=== PATIENT | female | born 1970 | race Caucasian/White ===

== ENCOUNTER → 2021-01-03 10:21 | Outpatient (CLI) | payer BC, SELFPAY ==
--- NOTE | 2021-01-03 10:28 | XR_ITS ---
PROCEDURE: XR LUMBAR SPINE MIN 4V CLINICAL INDICATION: ACUTE MIDLINE LOW BACK PAIN, UNSPECIFIED IF SCIATICA PRESENT COMPARISON: No exams were available for comparison FINDINGS: There is normal curvature and alignment. All lumbar vertebrae appear intact. Disc spaces are well maintained throughout. There is no pars defect. There are mild hypertrophic facet changes at the L 4 5 and L5-S1 levels. The SI joints appear normal. IMPRESSION: Mild hypertrophic facet changes lower lumbar spine otherwise normal study Dictated by: Dr. Hesham Godwin MD 01/03/2021 11:48 Dr. Hesham Godwin MD in [place] 01/03/2021 11:48
== END ==
PROVIDERS: PCP Family Medicine; Visit Provider Family Medicine
DX: M54.5 Low back pain (principal)
CPT/HCPCS: 72110

== ENCOUNTER → 2021-01-10 10:12 | Outpatient (CLI) | payer BC, SELFPAY ==
--- NOTE | 2021-01-10 10:16 | MM_ITS ---
PROCEDURE INFORMATION: Exam: Screening 3D Mammography Exam date and time: 01/10/2021 10:16 AM Age: 50 years old Clinical indication: Encounter for screening mammogram for malignant neoplasm of breast TECHNIQUE: Imaging protocol: Screening tomosynthesis and 2D mammography including computer-aided detection (CAD) when performed. COMPARISON: MG DMSB DIG MAMM-SCREEN SOLA W/CAD 01/01/2017 9:54 AM FINDINGS: MAMMOGRAPHY: Breast composition: The breast tissue is composed of scattered areas of fibroglandular density. Mass: None. Architectural distortion: None. Calcifications: No suspicious calcifications. Asymmetric density: None. Skin thickening: None. Axillary adenopathy: None. IMPRESSION: No mammographic evidence of malignancy. Annual screening is recommended unless otherwise clinically indicated. ASSESSMENT: BI-RADS Category 1: Negative
== END ==
PROVIDERS: PCP Family Medicine; Visit Provider Family Medicine
DX: Z12.31 Encounter for screening mammogram for malignant neoplasm of breast (principal)
CPT/HCPCS: 77063; 77067

== ENCOUNTER → 2021-03-07 14:15 | Outpatient (CLI) | payer BC, SELFPAY ==
[2021-03-07 15:29] LABS: HCG Qualitative, Serum Negative (Negative)
== END ==
PROVIDERS: Visit Provider Internal Medicine Gastroenterology
DX: Z01.812 Encounter for preprocedural laboratory examination (principal); Z11.52 Encounter for screening for COVID-19; U07.1 COVID-19; Z12.11 Encounter for screening for malignant neoplasm of colon
CPT/HCPCS: 36415; 84703; U0003

== ENCOUNTER 2021-09-05 17:51 | Emergency (ER) | payer BC, SELFPAY ==
[2021-09-05 18:52] VITALS: BP 150/84; PULSE 91; RESP 16; TEMP 36.8; O2SAT 100; BMI 39.8
--- NOTE | 2021-09-05 19:02 | HMH.EDUTC ---
[facility] [place] Clinical Impression: Allergic reaction Qualifiers: Encounter type: initial encounter Qualified Code(s): T78.40XA - Allergy, unspecified, initial encounter Disposition: Home, Self-Care Condition on Discharge: Good Instructions: DI for General Allergic Reactions Additional Instructions: Try to avoid contact with the offending substance if you can identify it. Don't start the oral steroids until tomorrow. Follow up with your regular doctor. GO TO THE ER FOR ANY WORSENING SYMPTOMS OR CONCERNS Watch your blood sugars and follow your diabetic diet closely while you are on the steroids. Prescriptions: methylPREDNISolone [Medrol] 4 mg PO DIRECTED 6 Days #21 packet Transmission Status: Received by [employer] Referrals: Josh Mcbride MD [Primary Care Provider] - Time of Disposition: 19:31 Medical Decision Making - Medical Records Medical records reviewed: No: I reviewed the patient's medical records. - Mathew Inquiry Pt receiving controlled substance: No Vital Signs: 09/05/21 18:52 09/05/21 19:51 Temperature 98.2 F 98.2 F Temperature Source Oral Pulse Rate 91 H Pulse Rate [Left] 91 H Respiratory Rate 16 16 Blood Pressure 150/84 H Blood Pressure [Right Arm] 150/84 H Blood Pressure Mean [Right Arm] 106 02 Sat by Pulse Oximetry 100 Orders (Tests/Meds): ED MEDICATIONS Discontinued Medications Generic Name Dose Route Start Last Admin Trade Name Georgeq PRN Reason Stop Dose Admin Methylprednisolone Sodium Succinate 125 mg 09/05/21 19:14 09/05/21 19:21 Methylprednisolone Sod Succ 125mg Vial IM 09/05/21 19:15 125 mg ONCE ONE Administration [facility] [place] [facility] [place] - General Stated complaint: both eyelids are itchy/burning Time Seen by Provider: 09/05/21 19:02 Mode of Arrival: Ambulatory Source of Information: Patient Limitations: No Limitations Description of Symptoms (Recalled from Triage Doc. by RN): pt c/o a rash on her eyelids/neck that itches, kingsley and is swollen. pt wants checked for shingles. ongoing x1wk. HEENT Symptoms (Recalled from RN notes): No Resp Symptoms (Recalled from RN notes): No Skin Symptoms (Recalled from RN notes): Yes MS Symptoms (Recalled from RN notes): No Functional Status (Recalled from RN notes): wnl - History of Present Illness Provider Complaint: She states that for the past 3 days she has had swelling and itching around her eyes. Her eye lids have been swollen also. She is also having a similar in appearance and feeling rash on the left side and front of her neck. She denies any fever/chills/body aches or any other symptoms. She denies being exposed to any known allergens. She denies any mouth or throat swelling, chest pain, wheezing or shortness of breath. - Related Data Home Medications Medication Instructions Recorded Confirmed Dapagliflozin/Metformin HCl 1 each PO DAILY 03/05/21 03/05/21 [Xigduo Xr 5 mg-1,000 mg Tablet] Levothyroxine Sodium 50 mcg PO DAILY 03/05/21 03/05/21 [Levothyroxine] glipiZIDE [Glipizide] 10 mg PO DAILY 03/05/21 03/05/21 lisinopriL [Lisinopril] 10 mg PO DAILY 03/05/21 03/05/21 Previous Rx's Medication Instructions Recorded methylPREDNISolone [Medrol] 4 mg PO DIRECTED 6 Days #21 09/05/21 packet Allergies Allergy/AdvReac Type Severity Reaction Status Date / Time No Known Allergies Allergy Unverified 03/07/21 15:03 - Worker's Comp Is this a Worker's Comp case?: No [facility] History - Hepatitis A Screen Drug use history?: No High risk sexual behaviors?: No History of sexually transmitted infection?: No Currently employed?: No Childcare worker?: No Do you have indoor plumbing?: Yes Do you have electricity?: Yes Attestation statement:: This patient has been screened for Hepatitis A risk factors. I have reviewed the patient's past medical history: Yes Medical History: Reports:: Diabetes Mellitus Type 2 Denies:: Cancer, Diabetes Mellitus Type 1
[2021-09-05 19:51] VITALS: BP 150/84; PULSE 91; RESP 16; TEMP 36.8
== END 2021-09-05 19:52 | disposition home or self-care (01) ==
PROVIDERS: Emergency Provider Nurse Practitioner Family; PCP Family Medicine
DX: T78.40XA Allergy, unspecified, initial encounter (principal)
CPT/HCPCS: 96372; 99202; G0463

== ENCOUNTER → 2022-06-05 10:47 | Outpatient (CLI) | payer BC, SELFPAY ==
--- NOTE | 2022-06-05 10:50 | MM_ITS ---
PROCEDURE INFORMATION: Exam: MG Bilateral Screening 3D Mammography Exam date and time: 06/05/2022 10:50 AM Age: 51 years old Clinical indication: Screening examination TECHNIQUE: Imaging protocol: Bilateral Screening tomosynthesis and 2D mammography including computer-aided detection (CAD) when performed. COMPARISON: 1. MG MM DIG SCREENING MAMM BI W/CAD 01/10/2021 10:16 AM 2. MG DMSB DIG MAMM-SCREEN SOLA W/CAD 01/01/2017 9:54 AM FINDINGS: MAMMOGRAPHY: Breast composition: There are scattered areas of fibroglandular density. Mass: None. Architectural distortion: None. Calcifications: No suspicious calcifications. Asymmetric density: None. Skin thickening: None. Axillary adenopathy: None. IMPRESSION: No mammographic evidence of malignancy. Annual screening is recommended unless otherwise clinically indicated. ASSESSMENT: BI-RADS Category 1: Negative
== END ==
PROVIDERS: PCP Family Medicine; Visit Provider Family Medicine
DX: Z12.31 Encounter for screening mammogram for malignant neoplasm of breast (principal)
CPT/HCPCS: 77063; 77067

== ENCOUNTER 2022-06-30 06:56 | Day surgery (SDC) | payer BC, SELFPAY ==
[2022-06-25 13:38] VITALS: BMI 39.4
[2022-06-30] VITALS (7 sets, daily range): BP systolic 111–165; BP diastolic 67–86; PULSE 95–116; RESP 14–18; TEMP 36.2–36.7; O2SAT 92–97
[2022-06-30 07:21] LABS: POC Glucose,Bedside 112 (70-110)
--- NOTE | 2022-06-30 07:27 | P.PN_ITS ---
PFSH PFSH Medical History Allergies Arthritis Diabetes mellitus, type 2 Edema Endometriosis History of back pain History of COVID-19 Hypertension Hypothyroid Surgical History History of surgery Family History Mother Colon cancer Grandfather Colon cancer Social History Smoking Status: Never smoker alcohol intake: never substance use type: denies use current occupational status: employed Travel in the last 8 weeks: None household members: spouse housing: house current occupational exposures/hazards: No caffeine: Yes [facility] Anesthesia Checklist Patient Identification Patient Identification: Arm Band and Verbal (Name & ) Structural Data Admitted From: Home Planned Operative Procedure/s: Colonoscopy Consent for Planned Operative Procedure(s) Verified: Yes NPO Status Verified Time NPO: 06:00 Airway Assessment C-Spine Mobility Assessed: Yes TMJ Mobility Assessed: Yes Dentition: Good Dentition Neurological Assessment Level of Consciousness: Awake Hx Seizures: No Numbness or tingling in extremities: No Anesthesia Plan Anesthesia Risk discussed: Yes Anesthesia Plan: Verified ASA Class: III Anesthesia Type: MAC
--- NOTE | 2022-06-30 08:03 | HMH.SCOPE ---
Procedure: Date: 06/30/22 Patient Date of :: 1970 Procedure Performed:: Colonoscopy Indications:: Screening Performing Provider:: Hill Gold MD Referring Provider:: Dr. Mcbride Sedation:: Monitored anesthesia care Procedure:: After informed consent was obtained the patient was taken to the endoscopy suite. Sedation ensued after the patient was transferred to the left lateral decubitus position. Pulse, blood pressure, and oxygen saturation were monitored throughout the procedure. Digital rectal exam revealed no significant abnormality. The colonoscope was placed in position. The entire colon was evaluated. The colonoscope was carefully removed and the patient was transferred to recovery in stable condition. Please see findings and specimens below for detail. Findings:: Bowel preparation fair Significant lack of relaxation Hemorrhoidal cushions Specimens:: None Recommendations:: Repeat colonoscopy 3-5 years secondary to lack of relaxation. Complications:: No immediate Estimated blood obtained (mL): 0
== END 2022-06-30 08:35 | disposition home or self-care (01) ==
PROVIDERS: PCP Family Medicine; Visit Provider Surgery
PROC: 0DJD8ZZ Inspection of Lower Intestinal Tract, Via Natural or Artificial Opening Endoscopic (ICD-10-PCS; CPT 45378; principal; 2022-06-30 08:30)
DX: Z12.11 Encounter for screening for malignant neoplasm of colon (principal); E11.9 Type 2 diabetes mellitus without complications; Z79.899 Other long term (current) drug therapy
CPT/HCPCS: 45378; 82962; J1610; J2704

== ENCOUNTER 2023-02-18 17:00 | Outpatient (RCR) | payer BC, SELFPAY ==
--- NOTE | 2022-12-30 18:03 | HMH.PTOPEV ---
PT Outpatient Evaluation Rehab PT Outpatient Evaluation Start: 12/30/22 17:05 Freq: Status: Active Protocol: Document 12/30/22 17:47 SELINA (Rec: 12/30/22 18:01 SELINA [id number]) E-signed By Vance Raymundo, PT Outpatient Therapy Subjective History Subjective History Patient is a 52 year old female presenting to outpatient PT with reports of chronic LBP with intermittent BLE radicular symptoms. Symptoms of insidious onset starting approx 2.5 years ago. Most recent imaging indicates mild hypertrophic facet changes. Patient demonstrates flexion bias. Comorbidities include hx of diabetes and HTN. Chief Complaint Pain,Stiff,Paresthesia Symptom Type Ache Symptoms Relieved By Rest/Positioning,Prescription Meds Symptoms Aggravated By Standing,Bending/Stooping, Physical Activity,Walking, Lifting Prior Functional Limitations None Current Functional Limitations Lifting,Housework,Standing, Walking,Bending/Stooping Level of pain today (0-10) 6 Pain scale - at its best (0-10) 2 Pain scale - at its worst (0-10) 8 Lumbopelvic Eval Posture Thoracic Spine Posture Standing Position Increased Kyphosis Lumbar Spine Posture Standing Position Increased Lordosis Palapation tenderness bilateral lumbar spinal tenderness Yes: L4-S1 3/4 paraspinal tenderness Yes: Lumbar/Sacral Palpation Findings Tenderness Lumbar/Sacral Palpation Overall Comment L PSIS/upper gluteal mm 3/4 Accessory Movement L4 bilateral L5 bilateral S1 bilateral Range of Motion Lumbar Spine Active Flexion Range of 33 Motion (degrees) Lumbar Spine Active Extension Range of 19 Motion (degrees) Left Lumbar Spine Lateral Flexion Active 13 Range of Motion (degrees) Right Lumbar Spine Lateral Flexion 19 Active Range of Motion (degrees) Lumbar Spine ROM Limitations Soft Tissue Tightness Manual Muscle Test Bilateral Knee Extension Strength Grade 5 Normal Knee Flexion Strength Grade 5 Normal Hip Flexion Strength Grade 5 Normal Extensor Hallucis Longus Strength Grade 5 Normal Ankle Dorsiflexion Strength Grade 5 Normal Gastronemius/Soleus Strength Grade 5 Normal Altered Sensation LE Dermatome Level L5,S1 Comment
--- NOTE | 2023-01-28 08:10 | HMH.RHREAS ---
Rehab Reassessment Rehab OP Re-assessment Start: 12/30/22 17:05 Freq: Status: Active Protocol: Document 01/28/23 08:05 SELINA (Rec: 01/28/23 08:10 SELINA [id number]) E-signed By Vance Raymundo, PT Rehab Re-assessment Subjective Subjective Patient reports 20% improvement since start of care. Objective Objective Notes AROM: flx 68; ext 18; SBl/SBr WNL MMT: WNL Pain: 3/10 today; 7/10 at worst over past week Neuro: no signs of sensory or motor deficits. Assessment Progress Assessment Progressing as Expected Assessment Notes Patient is progressing well as noted above. Over all improved moblility noted. Main compliant is B post-hip pain (R>L). Patient would benefit from continuing with skilled PT services in order to address functional limitations with prolonged standing/walking activities, as well as repetetive bending/ lifting. Patient goals met STG 2 Goals Not Met All others Revised Goals NA Plan Plan Continue with current POC. Frequency of Therapy 2x/week Duration of therapy 4 weeks Time and Billing Re-Eval Time 16 Re-Eval Billing Units 1 PHYSICIAN CERTIFICATION: I certify the specified therapy services for Ritika Roth are required, authorized, and reviewed every 30 days.
== END 2023-02-18 17:05 | disposition home or self-care (01) ==
LOC: PT 17:00
PROVIDERS: PCP Family Medicine; Visit Provider Family Medicine
DX: M54.50 Low back pain, unspecified (principal); M47.816 Spondylosis without myelopathy or radiculopathy, lumbar region
CPT/HCPCS: 20561; 97010; 97014; 97110; 97163; 97164; G0283

== ENCOUNTER 2024-09-01 14:18 | Outpatient (CLI) | payer BC, SELFPAY ==
--- NOTE | 2024-09-01 14:24 | XR_ITS ---
FINAL REPORT CLINICAL HISTORY: Pain in anterior/medial right knee. Fell on ice this morning. FINDINGS: Right knee Three views were obtained. There is no fracture or dislocation. There is mild to moderate osteophyte formation at the medial joint margin. Osteophytes are seen along the undersurface of the patella. There is a well-corticated ossific density superior to the patellofemoral joint. No soft tissue abnormality is identified. IMPRESSION: Degenerative changes as above. Reviewed, Interpreted and Dictated by Driss Eason MD Transcribed by Brittni Germain Authenticated and [facility]
== END 2024-09-01 23:59 | disposition home or self-care (01) ==
LOC: RAD 14:20
PROVIDERS: PCP Family Medicine; Visit Provider Family Medicine
DX: M25.561 Pain in right knee (principal)
CPT/HCPCS: 73562

== ENCOUNTER 2024-10-05 14:00 | Outpatient (RCR) | payer BC, SELFPAY ==
--- NOTE | 2024-09-29 13:54 | HMH.PTOPEV ---
PT Outpatient Evaluation Rehab PT Outpatient Evaluation Start: 09/29/24 13:37 Freq: Status: Active Protocol: Document 09/29/24 13:37 ROB (Rec: 09/29/24 13:54 ROB [id number]) E-signed By Nehemiah Martinez, PT Outpatient Therapy Subjective History Subjective History Pt is a 54 yof who is referred to [facility] outpatient Physical Therapy with acute right knee pain. She reports that she fell on ice approximately one month ago and her knee has been very painful ever since. She is unable to recall if her knee popped when she fell and does not recall the position that her knee was in when she fell. She reports that it swelled almost immediately. She reports that she had radiographs done, which came back negative. Reports that she is currently off work. Her job requires her to be seated for the majority of the day. She reports that she has been using a SP cane for mobility. 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 Chief Complaint Pain,Clicks,Gives out/Unstable Symptom Type Ache,Throb,Dull Symptoms Relieved By Rest/Positioning,Ice Symptoms Aggravated By Supine,Standing,Twisting, Walking,Lifting Prior Functional Limitations None Current Functional Limitations Lifting,Housework,Standing, Sitting,Squatting,Walking, Stairs,Balance Symptom Description Constant but Variable Level of pain today (0-10) 5 Pain scale - at its best (0-10) 3 Pain scale - at its worst (0-10) 10 Hip/Knee Eval Gait Observation General Gait Pattern Observation Antalgic Gait,Wide Based Gait, Decrease Weight Bear (R), Decrease Stride Lngth (L) Assistive Device Assistive Devices Straight Cane Palpation Tenderness right Knee Palpation Finding Tenderness Knee Palpation Overall Comment 3/4 to lateral joint line 2/4 to medial joint line MMT Hip Flexion Strength Grade 3 Fair Hip Abduction Strength Grade 2+ Poor+ Hip Adduction Strength Grade 2+ Poor+ Hip Extension Strength Grade 2+ Poor+ Knee Extension Strength Grade 3 Fair Knee Flexion Strength Grade 2+ Poor+ ROM Knee Extension Active Range of Motion ( -8 degrees) Knee Extension Passive Range of Motion ( -2 degrees) Knee Flexion Active Range of Motion ( 90 degrees) Knee Flexion Passive Range of Motion ( 92 degrees) Knee ROM Limitations Pain Special Tests Hip Scouring (Quadrant) Test Negative Left,Negative Right Topher Test Negative Knee Apley Compression Test Positive Right Knee Anterior Jose Test Negative Left,Negative Right Knee Valgus Stress Test Negative Left,Negative Right Knee Varus Stress Test Negative Left,Positive Right Knee Didi Test Negative Left,Positive Right Lower Extremity Functional Index Activities Today, do you or would you have any difficulty at all with: a.Any of your usual work, housework or Extreme difficulty or unable school activities to perform activity b. Your usual hobbies, recreational or Extreme difficulty or unable sporting activities to perform activity c. Getting into or out of the bath Quite a bit of difficulty d. Walking between rooms Quite a bit of difficulty e. Putting on your shoes or socks Moderate difficulty f. Squatting Extreme difficulty or unable to perform activity g. Lifting an object, like a bag of Moderate difficulty groceries from the floor h. Performing light activities around Quite a bit of difficulty your home i. Performing heavy activities around Extreme difficulty or unable your home to perform activity j. Getting into or out of a car Quite a bit of difficulty k. Walking 2 blocks Extreme difficulty or unable to perform activity l. Walking a mile Extreme difficulty or unable to perform activity m. Going up or down 10 stairs (about 1 Extreme difficulty or unable flight of stairs) to perform activity n. Standing for 1 hour Extreme difficulty or unable to perform activity o. Sitting for 1 hour Moderate difficulty p. Running on even ground Extreme difficulty or unable to perform activity q. Running on uneven ground Extreme difficulty or unable to perform activity r. Making sharp turns while running fast Extreme difficulty or unable to perform activity s. Hopping Extreme difficulty or unable to perform activity t. Rolling over in bed Quite a bit of difficulty LEFI Score Lower Extremity Functional Index Score 11 Miscellaneous Dx PT Eval Objective Objective SL Balance: unable to initiate on R leg Outpatient Therapy Assessment Impairments Problems/Impairmments Palpation Tenderness,Impaired Range of Motion,Impaired Strength,Impaired Gait Pattern ,Impaired Walking,Impaired Standing,Impaired Sitting, Impaired Household Care, Impaired Stair Climbing, Impaired Balance,Subjective C/ O Pain Prognosis Rehab Potential Good Comment w HEP compliance Clinical Impression Consistent with Diagnosis Yes Consistent with LCL sprain Additional details: Pt presents with tenderness along the lateral joint line and laxity and pain with the varus stress test. These signs and symptoms are consistent with an LCL sprain. The pt also presents with a hx of popping and clicking, pain with forced extension and flexion and a positive Didi's test. These signs and symptoms are suggestive of additional meniscal involvement. The pt would benefit from skilled PT at this time. Short Term Goals Number of Weeks 4 Decreased Palpation Tenderness Yes: 1-2/4 to lateral joint line Increase Range of Motion Yes: 0-110 AROM of R knee Increase Strength Yes: 3+/5 to R knee/hip Improve Gait Pattern with Assistive Yes: Normalized Gait Mechanics Device with AAD. Increase Ability to Stand Yes: 15 minutes without increasing pain Improve Balance Yes: SL Stance on R for 15s Improve LEFI Score Yes: to 25 Decrease Subjective C/O Pain Yes: 5/10 with above activities Patient to be Ind w/ HEP Yes Fpc Goals Number of Weeks 8 Decreased Palpation Tenderness Yes: 0-1/4 to Lateral joint line Increase Range of Motion Yes: 0-125 AROM of R knee Increase Strength Yes: 4-4+/5 to R knee/hip Improve Gait Pattern without Assistive Yes: normalized gait mechanics Device without AD Increase Ability to Stand Yes: 30 minutes without increasing pain Improve Balance Yes: SL Stance on R for 30 s Improve LEFI Score Yes: to 40 Decrease Subjective C/O Pain Yes: 2-3/10 with above activities Patient to be Ind w/ Advanced HEP Yes Outpatient Therapy Plan of Care Treatment Plan May Include Therapeutic Exercise Including Home Yes Exercise Program Manual Therapy Techniques Yes Neuromuscular Re-education Yes Therapeutic Activities to Return to Yes Previous Functional/Work Level Gait Training Yes ADL/Self Care Education Yes Thermal Modalities Yes Electrical Stimulation Yes Ultrasound/Phonophoresis Yes Iontophoresis Yes Manual Lymphatic Drainage Yes Eval/Re-Eval Yes Frequency Times per week 2 Duration Number of Weeks 8 Addendums This patient is a candidate for social No or vocational rehab? Patient/Guardian verbally acknowledges Yes understanding of treatment program and consents to further treatment? Patient/Guardian verbally acknowledges Yes understanding of diagnosis, prognosis and goals for treatment? Eval Complexity PT Charges 62928 - Moderate Complexity Shoulder/Elbow Eval Shoulder Objective Measurements Elbow Objective Measurements PHYSICIAN CERTIFICATION: I certify the specified therapy services for Ritika Roth are required, authorized, and reviewed every 30 days.
== END 2024-10-05 23:59 | disposition home or self-care (01) ==
LOC: PT 14:00
PROVIDERS: PCP Family Medicine; Visit Provider Family Medicine
DX: M25.561 Pain in right knee (principal)
CPT/HCPCS: 97014; 97110; 97140; 97163; 97530; G0283

== ENCOUNTER 2024-11-01 15:00 | Outpatient (RCR) | payer BC, SELFPAY ==
--- NOTE | 2024-10-25 18:03 | HMH.RHREAS ---
Rehab Reassessment Rehab OP Re-assessment Start: 10/11/24 14:54 Freq: Status: Active Protocol: Document 10/25/24 17:57 ROB (Rec: 10/25/24 18:03 ROB [id number]) E-signed By Nehemiah Martinez, PT Lower Extremity Functional Index Activities Today, do you or would you have any difficulty at all with: a.Any of your usual work, housework or A little bit of difficulty school activities b. Your usual hobbies, recreational or A little bit of difficulty sporting activities c. Getting into or out of the bath A little bit of difficulty d. Walking between rooms A little bit of difficulty e. Putting on your shoes or socks A little bit of difficulty f. Squatting Extreme difficulty or unable to perform activity g. Lifting an object, like a bag of A little bit of difficulty groceries from the floor h. Performing light activities around A little bit of difficulty your home i. Performing heavy activities around A little bit of difficulty your home j. Getting into or out of a car A little bit of difficulty k. Walking 2 blocks A little bit of difficulty l. Walking a mile A little bit of difficulty m. Going up or down 10 stairs (about 1 Quite a bit of difficulty flight of stairs) n. Standing for 1 hour Extreme difficulty or unable to perform activity o. Sitting for 1 hour A little bit of difficulty p. Running on even ground Extreme difficulty or unable to perform activity q. Running on uneven ground Extreme difficulty or unable to perform activity r. Making sharp turns while running fast Extreme difficulty or unable to perform activity s. Hopping Extreme difficulty or unable to perform activity t. Rolling over in bed Extreme difficulty or unable to perform activity LEFI Score Lower Extremity Functional Index Score 37 Rehab Re-assessment Subjective Subjective Pt reports that she is 70% improved. Reports that she is walking signficiantly better. Able to be up on her feet for longer periods. Reports that she is able to stand for 15 minutes maximum at this time. Reports that she is able to do some cooking/cleaning but not much. Reports that her pain is 8/10 at worst but 3/10 when going through her exercises and assessment. Reports she is supposed to go back to work on november 07. Objective Objective Notes R Knee ROM: -2-110 LEFS: 37 (11 on IE) Strength: - Knee Extension 4/5 - Knee Flexion 4/5 - hip Abd 4/5 - hip Add 4/5 - hip flexion 4/5 Gait: Unremarkable gait TTP: / to Lateral Joint line of R knee SL Stance: 9s on R Leg Assessment Progress Assessment Progressing as Expected Assessment Notes Pt is progressing as expected. Made significant progress in motion and strength but continues to present below baseline in these areas and in standing tolerance. Skilled PT remains indicated. Patient goals met ST,3,4,5, 7, 8, 9 LT Plan Plan Continue as per initial POC Frequency of Therapy 2/week Duration of therapy 4 weeks Time and Billing Re-Eval Time 9 Re-Eval Billing Units 1 Charge for PT reassessment? Yes PHYSICIAN CERTIFICATION: I certify the specified therapy services for Ritika Roth are required, authorized, and reviewed every 30 days.
== END 2024-11-01 23:59 | disposition home or self-care (01) ==
LOC: PT 15:00
PROVIDERS: PCP Family Medicine; Visit Provider Family Medicine
DX: M25.561 Pain in right knee (principal)
CPT/HCPCS: 97014; 97016; 97110; 97164; 97530; G0283

== ENCOUNTER 2024-11-17 12:57 | Outpatient (CLI) | payer BC, SELFPAY ==
--- NOTE | 2024-11-17 13:00 | MM_ITS ---
PROCEDURE INFORMATION: Exam: MG Bilateral Screening 3D Mammography Exam date and time: 11/17/2024 1:07 PM Age: 54 years old Clinical indication: Screening examination TECHNIQUE: Imaging protocol: Bilateral Screening tomosynthesis and 2D mammography including computer-aided detection (CAD) when performed. COMPARISON: 1. MG MM DIG SCREENING MAMM BI W/CAD 06/05/2022 10:50 AM 2. MG MM DIG SCREENING MAMM BI W/CAD 01/10/2021 10:16 AM FINDINGS: MAMMOGRAPHY: Breast composition: There are scattered areas of fibroglandular density. Mass: None. Architectural distortion: None. Calcifications: No suspicious calcifications. Asymmetric density: None. Skin thickening: None. Axillary adenopathy: None. IMPRESSION: No mammographic evidence of malignancy. Annual screening is recommended unless otherwise clinically indicated. ASSESSMENT: BI-RADS Category 1: Negative.
== END 2024-11-17 23:59 | disposition home or self-care (01) ==
PROVIDERS: PCP Family Medicine; Visit Provider Family Medicine
DX: Z12.31 Encounter for screening mammogram for malignant neoplasm of breast (principal)
CPT/HCPCS: 77063; 77067

== ENCOUNTER 2025-04-14 10:49 | Outpatient (CLI) | payer BC, SELFPAY ==
--- OUTSIDE RECORDS SUMMARY | 2024-09-25 12:15 | XMS_ITS ---
[facility] Address [address] [place] [id number] Care Team Providers Care Senior Materials Analyst Name Role Phone Josh Mcbride Primary Care Provider Allergies No Known Allergies Reason For Referral Reason Please use [facility] rehab Diagnosis 1 Acute pain of right knee (M25.561) Referral Organization [facility] Referring Provider First Name Josh Referring Provider Last Name Rae Referring Provider Speciality Family Pra ctice Referred Provider Physical Therapy, . Referred Provider Specialty Physical The rapist General Notes Katarina Garrido 09/26/19 25 9:24:18 AM > faxed to [facility] PT Referral Priority Routine REASON FOR VISIT Knee Pain Medications Medication SIG (Take, Route, Frequency, Duration) Notes Start Date End Date Status metFORMIN HCl ER 500 MG 2 tablets Orally Two times a day 11/29/2023 Active Rybelsus 7 MG 1 tablet at least 30 minutes before first food, beverage or other oral medicine of the day Orally Once a day 02/25/2024 Active Losartan Potassium 50 MG 1 tablet Orally Once a day; Duration: 90 days Active Spironolactone 25 MG 1 tablet Orally Onc e a day; Duration: 90 days Active Levothyroxine Sodium 75 MCG 1 tab(s) ora lly once a day; Duration: 90 days Active glipiZIDE 10 MG 1 tab(s) orally once a day Active Farxiga 10 MG 1 tablet Orally Once a day Active Diclofenac Sodium 1 % as directed Cutting And Printing Machine Operator ally Four times a day 09/25/2024 Active Vital Signs Weight 221.8 lbs 09/25/2024 Blood pressure systolic 150 mm Hg 09/25/19 25 Blood pressure diastolic 90 mm Hg 025 Heart Rate 104 /min 09/25/2024 Height 63 in 09/25/2024 BMI 39.29 kg/m2 09/25/2024 Encounters Encounter Location Date Provider Diagnosis [facility] [address] [facility] [address] [facility] [address] [place] [id number] 09/25/2024 Josh Mcbride Acute pain of right knee M25.561 Assessments Encounter Date Diagnosis (ICD Code) Assessment Notes Treatment Notes Treatment Clinical Notes Section Notes 09/25/2024 Acute pain of right knee (ICD-10 - M25.561) Plan Of Treatment Medication Medication Name Sig Start Date Stop Date Notes Diclofenac Sodium 1 % as directed Cutting And Printing Machine Operator ally Four times a day 09/25/2024 Referrals Referral Date Details 09/25/2024 09/25/2024, Please u se [facility] rehab, . Physical Therapy Next Appt Details Follow Up: 3 Weeks fasting, Reason: Provider Name:Josh allen, 04/20/2025 09:45:00 AM, [address] [facility] [address] [facility], [address], [place], [id number], Provider Name:Josh allen, 06/08/2025 09:15:00 AM, [address] [place] [address], [address], [place], [phone], Progress Notes * JED ALONZODOB:[birth year] (54 yo F)Acc No.[id number]:09/25/2024 Progress Notes Patient: JED FITZGERALD Provider: Petros Mcbride M.D. :1970 A ge:54 Y S ex:Female Date:09/25/2024 Address:[address] [place], [place] [id number] Subjective: * Chief Complaints: * 1 . Knee Pain. * HPI: K nee/Knapp: 54 year old female presents with c/o knee pain P t complains of ongoing rt knee pain. Pt states that pain is some better (33% better) since 09/01/2024 fall. She has been placed off of work and can not return until she has no restrictions. States she is able to walk a few minutes before the pain intensifies. Pain resolves after a few minutes of rest. * ROS: D ERMATOLOGY: no R brenda. n o H claritza. G ASTROENTEROLOGY: no N ausea. n o V omiting. U ROLOGY: no D ifficulty urinating. n o B lood in urine. * Medical History: T ype 2 Diabetes, Hypertension, Hypothyroidism, Family Hx Colon Cancer, Chronic kidney disease. * Surgical History: C olonoscopy . * Hospitalization/Major Diagno stic Procedure: D enies Past Hospitalization. * Family History: F ather: 64 yrs, dementia. M other: alive 75 yrs, hypothyroid, diagnosed with Diabetes, Hypertension, Cancer. 1 brother(s) . . Mother has colon cancer. * Social History: C URRENT TOBACCO USE: No . C affeine: yes, frequency: soda. Home smoke detector use: yes. Alcohol: No. * Medications: T aking Farxiga 10 MG Tablet 1 tablet Orally Once a day , Taking glipiZIDE 10 MG Tablet 1 tab(s) orally once a day , Taking Rybelsus 7 MG Tablet 1 tablet at least 30 minutes before first food, beverage or other oral medicine of the day Orally Once a day , Taking metFORMIN HCl ER 500 MG Tablet Extended Release 24 Hour 2 tablets Orally Two times a day , Taking Losartan Potassium 50 MG Tablet 1 tablet Orally Once a day , Taking Levothyroxine Sodium 75 MCG Tablet 1 tab(s) orally once a day , Taking Spironolactone 25 MG Tablet 1 tablet Orally Once a day , Medication List reviewed and reconciled with the patient * Allergies: N .K.D.A. Objective: * Vitals: W t:221.8, Temp:97.8, BP:150/90, HR:104, Nurse:cydney, Ht: 63, BMI:39.29. * Examination: G eneral Examination: General Appearance: N AD. K nee / Knapp: Knee: r ight. I nspection: e ffusion: minimal. P alpation: t enderness on medial joint line. C ollateral ligaments: tenderness on medial side. R antwan of motion: pain at extremes of motion. Assessment: * Assessment: 1. A cute pain of right knee - M25.561 (Primary) Plan: * Treatment: * Follow Up: 3 Weeks fasting * Images: Billing Information: * Visit Code: 89588 Office Visit, Est Pt., Level 3. * Procedure Codes: * Electronic signature of Jessica Mcbride MD on 04/14/2025 at 10:53 AM EDT Sign off status: Pending * Provider: Petros Mcbride M.D. Date: 0 09/25/2024 Generated for Polo cortes/Bridger/eTransmitting on: 0 04/14/2025 10:53 AM EDT History and Physical Notes * HPI (History of Present Illness) Category Sub-Category Detail Notes Category Not es Knee/Knapp knee pain Pt complains of ongoing rt knee pain. Pt states that pain is some better (33% better) since 09/01/2024 fall. She has been placed off of work and can not return until she has no restrictions. States she is able to walk a few minutes before the pain intensifies. Pain resolves after a few minutes of rest Examination Category Sub-Category Detail Notes Category Not es General Examination General Appearance: NAD Knee / Knapp Palpation: tenderness on me dial joint line Knee: right Inspection: effusion: minimal Range of motion: pain at extremes of motion Collateral ligaments: tenderness on medi al side Consultation Request Notes Referral Date Referring Provider Referred Provider Not es 09/25/2024 Josh Mcbride Physical Therapy, . Mallory pompa use [facility] rehab
--- OUTSIDE RECORDS SUMMARY | 2024-10-06 07:00 | XMS_ITS ---
Author Organization [facility] Address [address] [place] [id number] Care Team Providers Care Hydrotel Operator Name Role Phone Josh Mcbride Primary Care Provider REASON FOR VISIT 3 Month Check Up Encounters Encounter Location Date Provider Diagnosis [facility] [address] [place] [id number] 10/06/2024 Josh Mcbride Plan Of Treatment Next Appt Details Provider Name:Josh allen, 04/20/2025 09:45:00 AM, [address], [address], [place], [place], [id number], Provider Name:Josh allen, 06/08/2025 09:15:00 AM, [address], [address], [place], [place], [id number], Progress Notes * JED ALONZODOB:[birth year] (54 yo F)Acc No.[id number]:10/06/2024 Progress Notes Patient: JED FITZGERALD Provider: Petros Mcbride M.D. :1970 A ge:54 Y S ex:Female Date:10/06/2024 [address] [id number] Subjective: * Chief Complaints: * 1 . 3 Month Check Up. * Medical History: Objective: * Vitals: Assessment: Plan: * Treatment: * Images: Billing Information: * Visit Code: * Procedure Codes: * Electronic signature of Jessica Mcbride MD on 04/14/2025 at 10:53 AM EDT Sign off status: Pending * Provider: Petros Mcbride M.D. Date: 10/06/2024 Generated for Polo cortes/Bridger/Jodie on: 0 04/14/2025 10:53 AM EDT
--- OUTSIDE RECORDS SUMMARY | 2024-10-16 05:45 | XMS_ITS ---
Author Organization [facility] Address [address] [place], [place] [id number] Care Team Providers Care Oil Dispatcher Name Role Phone Josh Mcbride Primary Care Provider [phone] Allergies No Known Allergies Results Component Value Reference Range Notes Glucose (In-House) Reviewed date:10/16/2024 03:27:45 PM Interpretation:133 Performing Lab: Notes/Report: 133 blood glucose 133 74 - 106 mg/dL Glycohemoglobin A1c (in hous e) Reviewed date:10/17/2024 09:05:01 AM Interpretation:8.9 Performing Lab: Notes/Report: 8.9 glycohemoglobin 8.9% 5 - 6.5 % P-Comprehensive Metabolic Pa raghu (CMP) Reviewed date:10/17/2024 09:05:01 AM Interpretation:gluc 116, bun 23, Cr 1.57, gfr 29 Performing Lab: Notes/Report: Test performed by [facility] [address] [place] [address] , [address], [place] [address] Karsten Mullins MD, Business Case Analyst CLIA: [id number] Sodium 141 135-145 mmol/L Potassium 4.6 3.5-5.3 mmol/L Chloride 105 97-108 mmol/L CO2 24 22-32 mmol/L Glucose 116 65-99 mg/dL BUN 23 6-20 mg/dL Creatinine 1.57 0.50-1.00 mg/dL Calcium 9.5 8.6-10.4 mg/dL eGFR by Creatinine 39 >59 mL/min/1.73m2 Protein 7.3 6.0-8.3 g/dL Albumin 4.2 3.5-5.3 g/dL Alkaline Phosphatase 108 35-121 IU/L ALT (SGPT) 26 <5-47 IU/L AST (SGOT) 18 <5-40 IU/L Bilirubin, Total 0.4 <0.2-1.2 mg/dL A/G Ratio 1.4 1.1-2.5 P-Lipid Panel Reviewed date:10/17/2024 09:05:01 AM Interpretation:chol 214, hdl 39, chol/hdl 5.49, non-hdl 175, ldl 149 Performing Lab: Notes/Report: Test performed by [facility], [address] , [address], [place] [address] Karsten Mullins MD, Business Case Analyst CLIA: [id number] Cholesterol 214 <200 mg/dL Triglycerides 130 <150 mg/dL HDL Cholesterol 39 >39 mg/dL Cholesterol / HDL Ratio 5.49 0.00-4.44 Ratio Non-HDL Cholesterol 175 <130 mg/dL LDL Cholesterol (Calculation) 149 <130 mg/dL LDL Cholesterol Levels* Less than 100 mg/dL Optimal 100 to 129 mg/dL Near Optimal/ Above Optimal 130 to 159 mg/dL Borderline High 160 to 189 mg/dL High 190 mg/dL and above Very High * Categories as recommended by the 2004 ATPIII guidelines LDL/HDL Ratio 3.8 <3.3 Ratio LDL Cholesterol Patient History Test Date: 05/15/2022 LDL Results: 111 Units: mg/dL % Change: - Test Date: 12/03/2023 LDL Results: 129 Units: mg/dL % Change: +16% Test Date: 10/16/2024 LDL Results: 149 Units: mg/dL % Change: +15% P-Phosphorus Reviewed date:10/17/2024 09:05:01 AM Interpretation:Normal Performing Lab: Notes/Report: Test performed by [facility] [address] , [address] , [place] [address] Karsten Mullins MD, Business Case Analyst CLIA: [id number] Phosphorus 3.8 2.5-4.5 mg/dL P-TSH reflex to FT4 Reviewed date:10/17/2024 09:05:01 AM Interpretation:Normal Performing Lab: Notes/Report: Test performed by [facility] [address] , [address], [place] [address] Karsten Mullins MD, Business Case Analyst CLIA: [id number] TSH reflex to FT4 4.07 0.43-5.25 mU/L P-Microalbumin/Creatinine, R andom Urine Sample Reviewed date:10/17/2024 09:05:01 AM Interpretation:Normal Performing Lab: Notes/Report: Test performed by [facility] [address] [place] [address] , [address], [place] [address] Karsten Mullins MD, Business Case Analyst CLIA: [id number] Albumin/Creatinine Ratio, Urine 3 0-30 ug/m g Microalbumin, Urine, Random 0.4 Creatinine, Urine 152.4 REASON FOR VISIT ckup fasting labs Medications Medication SIG (Take, Route, Frequency, Duration) Notes Start Date End Date Status Diclofenac Sodium 1 % as directed Externally Four times a day 09/25/2024 Active metFORMIN HCl ER 500 MG 2 tablets Orally Two times a day; Duration: 90 days Active glipiZIDE 10 MG 1 tab(s) orally once a day; Duration: 90 days Active Spironolactone 25 MG 1 tablet Orally Once a day; Duration: 90 days Active Farxiga 10 MG 1 tablet Orally Once a day; Duration: 90 days Active Losartan Potassium 100 MG 1 tablet Orally Once a day; Duration: 90 days Please cancel 50 mg dose of Losartan 10/16/2024 Active Levothyroxine Sodium 75 MCG 1 tab(s) orally once a day; Duration: 90 days Active Rybelsus 7 MG 1 tablet at least 30 minutes before first food, beverage or other oral medicine of the day Orally Once a day 02/25/2024 Active Vital Signs Weight 220.2 lbs 10/16/2024 Blood pressure systolic 144 mm Hg 10/17/19 25 Blood pressure diastolic 82 mm Hg 025 Heart Rate 117 /min 10/16/2024 Height 63 in 10/16/2024 BMI 39.00 kg/m2 10/16/2024 Encounters Encounter Location Date Provider [facility] [address] [id number] 10/16/2024 Josh Mcbride Essential hypertensi on I10 ; Type 2 diabetes mellitus without complication, without long-term current use of insulin E11.9 ; Pure hypercholesterolemia E78.00 ; Stage 3b chronic kidney disease (CKD) N18.32 ; Non morbid obesity due to excess calories E66.09 and Acute pain of right knee M25.561 Assessments Encounter Date Diagnosis (ICD Code) Assessment Notes Treatment Notes Treatment Clinical Notes Section Notes 10/16/2024 Essential hypertensi on (ICD-10 - I10) Not at goal 10/16/2024 Type 2 diabetes richard itus without complication, without long-term current use of insulin (ICD-10 - E11.9) 10/16/2024 Pure hypercholesterolemia (ICD-10 - E78.00) 10/16/2024 Stage 3b chronic kid ashleigh disease (CKD) (ICD-10 - N18.32) 10/16/2024 Non morbid obesity d ue to excess calories (ICD-10 - E66.09) 10/16/2024 Acute pain of right knee (ICD-10 - M25.561) Spoke to staff at [facility] rehab department. Requested she increase visits to twice weekly Plan Of Treatment Medication Medication Name Sig Start Date Stop Date Notes glipiZIDE 10 MG 1 tab(s) orally once a day; Duration: 90 days Farxiga 10 MG 1 tablet Orally Once a day; Duration: 90 days Losartan Potassium 100 MG 1 tablet Orally Once a day; Duration: 90 days 10/16/2024 Please cancel 50 mg dose of Losartan Losartan Potassium 50 MG 1 tablet Orally Once a day Treatment Notes Assessment Notes Essential hypertension Not at goal Acute pain of right knee Spoke to staff at [facility] rehab department. Requested she increase visits to twice weekly Next Appt Details Follow Up: 3 Weeks & 6 month s, Reason: Provider Name:Josh allen, 04/20/2025 09:45:00 AM, [address], [address], [place], [place], [id number], Provider Name:Josh allen, 06/08/2025 09:15:00 AM, [address], [address], [place], [place], [id number], Progress Notes * CHERI JEDDOB:[birth year] (54 yo F)Acc No.[id number]:10/16/2024 Progress Notes Patient: JED FITZGERALD Provider: Petros Mcbride M.D. :1970 A ge:54 Y S ex:Female Date:10/16/2024 Address:[address] [place], [place] [id number] Subjective: * Chief Complaints: * 1 . Ckup fasting labs. * HPI: C ardiology: 54 year old female presents with c/o Blood Pressure Elevated?Pt here to f/u on hypertension, states she is doing well and does not have any concerns. c/o Hyperlipidemia P t is fasting today. E ndocrinology: c/o Recent Blood Sugars P t here to f/u on DM 2. Pt states she does check her blood suagr at sometimes , this morning it was 143. * ROS: D ERMATOLOGY: no R brenda. [...] tablet Orally Once a day , Taking Rybelsus 7 MG Tablet 1 tablet at least 30 minutes before first food, beverage or other oral medicine of the day Orally Once a day , Taking Losartan Potassium 50 MG Tablet 1 tablet Orally Once a day , Taking Levothyroxine Sodium 75 MCG Tablet 1 tab(s) orally once a day , Taking Spironolactone 25 MG Tablet 1 tablet Orally Once a day , Taking Diclofenac Sodium 1 % Gel as directed Externally Four times a day , Taking glipiZIDE 10 MG Tablet 1 tab(s) orally once a day , Taking metFORMIN HCl ER 500 MG Tablet Extended Release 24 Hour 2 tablets Orally Two times a day , Medication List reviewed and reconciled with the patient * Allergies: N .K.D.A. Objective: * Vitals: W t:220.2, Temp:98.0, BP:144/82, HR:117, Nurse:cydney, Ht: 63, BMI:39.00. * Examination: C ardiology: General Appearance: p leasant, NAD. H EENT: u nremarkable. H eart sounds: R RR, normal S1, S2. L ungs: c lear, no rales or wheezes.?Extremities: t race bilateral leg edema. Assessment: * Assessment: 1. E ssential hypertension - I10 (Primary) 2 . T ype 2 diabetes mellitus without complication, without long-term current use of insulin - E11.9 3 . P ure hypercholesterolemia - E78.00 4 . S tage 3b chronic kidney disease (CKD) - N18.32 5. N on morbid obesity due to excess calories - E66.09 6 .?Acute pain of right knee - M25.561 Plan: * Treatment: Value Reference Range A /G Ratio 1.4 1.1-2.5 - * A lbumin 4.2 3.5-5.3 - g/dL * A lkaline Phosphatase 108 35-121 - IU/L * A LT (SGPT) 26 <5-47 - IU/L * A ST (SGOT) 18 <5-40 - IU/L * B ilirubin, Total 0.4 <0.2-1.2 - mg/dL * B UN 23 H 6-20 - mg/dL * C alcium 9.5 8.6-10.4 - mg/dL * C hloride 105 97-108 - mmol/L * C O2 24 22-32 - mmol/L * C reatinine 1.57 H 0.50-1.00 - mg/dL * G lucose 116 H 65-99 - mg/dL * P otassium 4.6 3.5-5.3 - mmol/L * S odium 141 135-145 - mmol/L * P rotein 7.3 6.0-8.3 - g/dL * e GFR by Creatinine 39 L >59 - mL/min/1.73m2 * Jelly Pope 10/17/2024 09:0 4:50 AM > See phone encounter ?LAB: P-Microalbumin/Creatinine, Random Urine Sample (Collection Date & Time - 10/16/2024 09:50 AM)?Normal* Value Reference Range A lbumin/Creatinine Ratio, Urine 3 0-30 - ug /mg * C reatinine, Urine 152.4 - mg/dL * M icroalbumin, Urine, Random 0.4 - mg/dL * Jelly Pope 10/17/2024 09:0 4:50 AM > See phone encounter Notes: Not at goal??2.?Type 2 diabetes mellitus without complication, without long-term current use of insulin? Refill glipiZIDE Tablet, 10 MG, 1 tab(s), orally, once a day, 90 days, 90, Refills 1;?Refill Farxiga Tablet, 10 MG, 1 tablet, Orally, Once a day, 90 days, 90, Refills 1.?LAB: P-Comprehensive Metabolic Panel (CMP) (Collection Date & Time - 10/16/2024 09:50 AM)?gluc 116, bun 23, Cr 1.57, gfr 29* Value Reference Range A /G Ratio 1.4 1.1-2.5 - * A lbumin 4.2 3.5-5.3 - g/dL * A lkaline Phosphatase 108 35-121 - IU/L * A LT (SGPT) 26 <5-47 - IU/L * A ST (SGOT) 18 <5-40 - IU/L * B ilirubin, Total 0.4 <0.2-1.2 - mg/dL * B UN 23 H 6-20 - mg/dL * C alcium 9.5 8.6-10.4 - mg/dL * C hloride 105 97-108 - mmol/L * C O2 24 22-32 - mmol/L * C reatinine 1.57 H 0.50-1.00 - mg/dL * G lucose 116 H 65-99 - mg/dL * P otassium 4.6 3.5-5.3 - mmol/L * S odium 141 135-145 - mmol/L * P rotein 7.3 6.0-8.3 - g/dL * e GFR by Creatinine 39 L >59 - mL/min/1.73m2 * Jelly Pope 10/17/2024 09:0 4:50 AM > See phone encounter ?LAB: P-TSH reflex to FT4 (Collection Date & Time - 10/16/2024 09:50 AM)? Normal* Value Reference Range T SH reflex to FT4 4.07 0.43-5.25 - mU/L * Jelly Pope 10/17/2024 09:0 4:50 AM > See phone encounter ?LAB: Glucose (In-House) (Collection Date & Time - 10/16/2024)?133* Value Reference Range b lood glucose 133 74 - 106 mg/dL * Calista Dunbar 10/16/2024 12:20:4 6 PM >Josh Mcbride 10/16/2024 3:27:41 PM > ?LAB: Glycohemoglobin A1c (in house) (Collection Date & Time - 10/16/2024)? 8.9* Value Reference Range g lycohemoglobin 8.9% 5 - 6.5 % * Calista Dunbar 10/16/2024 12:21:0 2 PM > Jelly Pope 10/17/2024 09:04:50 AM > See phone encounter 3.?Pure hypercholesterolemia?LAB: P-Comprehensive Metabolic Panel (CMP) (Collection Date & Time - 10/16/2024 09:50 AM)?gluc 116, bun 23, Cr 1.57, gfr 29* Value Reference Range A /G Ratio 1.4 1.1-2.5 - * A lbumin 4.2 3.5-5.3 - g/dL * A lkaline Phosphatase 108 35-121 - IU/L * A LT (SGPT) 26 <5-47 - IU/L * A ST (SGOT) 18 <5-40 - IU/L * B ilirubin, Total 0.4 <0.2-1.2 - mg/dL * B UN 23 H 6-20 - mg/dL * C alcium 9.5 8.6-10.4 - mg/dL * C hloride 105 97-108 - mmol/L * C O2 24 22-32 - mmol/L * C reatinine 1.57 H 0.50-1.00 - mg/dL * G lucose 116 H 65-99 - mg/dL * P otassium 4.6 3.5-5.3 - mmol/L * S odium 141 135-145 - mmol/L * P rotein 7.3 6.0-8.3 - g/dL * e GFR by Creatinine 39 L >59 - mL/min/1.73m2 * Jelly Pope 10/17/2024 09:0 4:50 AM > See phone encounter ?LAB: P-Lipid Panel (Collection Date & Time - 10/16/2024 09:50 AM)?chol 214, hdl 39, chol/hdl 5.49, non-hdl 175, ldl 149* Value Reference Range C holesterol / HDL Ratio 5.49 H 0.00-4.44 - Ratio * C holesterol 214 H <200 - mg/dL * H DL Cholesterol 39 L >39 - mg/dL * L DL Cholesterol (Calculation) 149 H <130 - mg/d L * L DL/HDL Ratio 3.8 H <3.3 - Ratio * N on-HDL Cholesterol 175 H <130 - mg/dL * T riglycerides 130 <150 - mg/dL * Jelly Pope 10/17/2024 09:0 4:50 AM > See phone encounter 4.?Stage 3b chronic kidney disease (CKD)?LAB: P-Comprehensive Metabolic Panel (CMP) (Collection Date & Time - 10/16/2024 09:50 AM)?gluc 116, bun 23, Cr 1.57, gfr 29* Value Reference Range A /G Ratio 1.4 1.1-2.5 - * A lbumin 4.2 3.5-5.3 - g/dL * A lkaline Phosphatase 108 35-121 - IU/L * A LT (SGPT) 26 <5-47 - IU/L * A ST (SGOT) 18 <5-40 - IU/L * B ilirubin, Total 0.4 <0.2-1.2 - mg/dL * B UN 23 H 6-20 - mg/dL * C alcium 9.5 8.6-10.4 - mg/dL * C hloride 105 97-108 - mmol/L * C O2 24 22-32 - mmol/L * C reatinine 1.57 H 0.50-1.00 - mg/dL * G lucose 116 H 65-99 - mg/dL * P otassium 4.6 3.5-5.3 - mmol/L * S odium 141 135-145 - mmol/L * P rotein 7.3 6.0-8.3 - g/dL * e GFR by Creatinine 39 L >59 - mL/min/1.73m2 * Jelly Pope 10/17/2024 09:0 4:50 AM > See phone encounter ?LAB: P-Phosphorus (Collection Date & Time - 10/16/2024 09:50 AM)?Normal* Value Reference Range P hosphorus 3.8 2.5-4.5 - mg/dL * Jelly Pope 10/17/2024 09:0 4:50 AM > See phone encounter 5.?Acute pain of right knee? Notes: Spoke to staff at [facility] rehab department. Requested she increase visits to twice weekly? * Procedure Codes: 8 2950 GLUCOSE TEST, 41656 GLYCATED HEMOGLOBIN TEST, Modifiers: QW , 3052F HG A1C>EQUAL 8.0%<EQUAL 9.0%, 3077F SYST BP = 140 MM HG6 IT, 3079F DIAST BP 80-89 MM HG * Follow Up: 3 Weeks & 6 months * Images: Billing Information: * Visit Code: 70066 Office Visit, Est Pt., Level 4. * Procedure Codes: 27625 GLU[address]SE [address]. [address]652 GLYCATED HEMOGLOBIN TEST. Modifiers: QW 3052F HG A1C>EQUAL 8.0%<EQUAL 9.0%. 3077F SYST BP = 140 MM HG6 IT. 3079F DIAST BP 80-89 MM HG. * Electronic signature of Jessica Mcbride MD on 04/14/2025 at 10:53 AM EDT Sign off status: Pending * Provider: Petros Mcbride M.D. Date: 0 10/16/2024 Generated for Polo cortes/Bridger/eTransmitting on: 0 04/14/2025 10:53 AM EDT History and Physical Notes * HPI (History of Present Illness) Category Sub-Category Detail Notes Category Not es Endocrinology Recent Blood Sugars Pt here to f /u on DM 2. Pt states she does check her blood suagr at sometimes , this morning it was 143 Cardiology Blood Pressure Elevated Pt here to f/u on hypertension, states she is doing well and does not have any concerns Hyperlipidemia Pt is fasting today Examination Category Sub-Category Detail Notes Category Not es Cardiology Lungs: clear, no rales or wheezes HEENT: unremarkable Heart sounds: RRR, normal S1, S2 Extremities: trace bilateral leg edema General Appearance: pleasant, NAD
--- OUTSIDE RECORDS SUMMARY | 2024-11-06 06:00 | XMS_ITS ---
[facility] Address [address] [place] [id number] Care Team Providers Care Information Security Analyst Name Role Phone Josh Mcbride Primary Care Provider Allergies No Known Allergies Reason For Referral Reason Please use [facility] at [facility] Diagnosis 1 CKD (chronic kidney disease) stage 4, GFR 15-29 ml/min (N18.4) Referral Organization [facility] Referring Provider First Name Josh Referring Provider Last Name Rae Referring Provider Speciality Family Pra ctice Referred Provider PHYSICAL THERAPY PROFESSOR, , Referred Provider Specialty Nephrology General Notes Katarina Garrido 2024 10:31:19 AM > initiated referral via website Referral Priority Routine REASON FOR VISIT 3 Week Follow Up Medications Medication SIG (Take, Route, Frequency, Duration) Notes Start Date End Date Status Diclofenac Sodium 1 % as directed Cathodic Protection Technician ally Four times a day 09/25/2024 Active glipiZIDE 10 MG 1 tab(s) orally once a day; Duration: 90 days Active metFORMIN HCl ER 500 MG 2 tablets Orally Two times a day; Duration: 90 days Active Losartan Potassium 100 MG 1 tablet Orall y Once a day; Duration: 90 days 10/16/2024 Active Farxiga 10 MG 1 tablet Orally [...] day Orally Once a day 02/25/2024 Active Problems Problem Type SNOMED Code ICD Code Onset Dates Problem Status W/U Status Risk Notes Problem Chronic kidney disease stage 4 ([id number]) CKD (chronic kidney disease) stage 4, GFR 15-29 ml/min (N18.4) Active confirmed Vital Signs Weight 221.4 lbs 11/06/2024 Blood pressure systolic 142 mm Hg 11/07/19 Blood pressure diastolic 92 mm Hg 025 Heart Rate 99 /min 11/06/2024 Height 63 in 11/06/2024 BMI 39.21 kg/m2 11/06/2024 Encounters Encounter Location Date Provider Diagnosis [facility] [address] [place] [id number] 11/06/2024 Josh Mcbride Acute pain of right knee M25.561 and CKD (chronic kidney disease) stage 4, GFR 15-29 ml/min N18.4 Assessments Encounter Date Diagnosis (ICD Code) Assessment Notes Treatment Notes Treatment Clinical Notes Section Notes 11/06/2024 Acute pain of right knee (ICD-10 - M25.561) Much improved, OK to return to work. Patient was off work from 09/20/24 to 11/07/24 11/06/2024 CKD (chronic kidney disease) stage 4, GFR 15-29 ml/min (ICD-10 - N18.4) Plan Of Treatment Treatment Notes Assessment Notes Acute pain of right knee Much improved, OK to return to work. Patient was off work from 09/20/24 to 11/07/24 Referrals Referral Date Details 11/06/2024 11/06/2024, Please u se clinic at [facility], , PHYSICAL THERAPY PROFESSOR Next Appt Details Follow Up: 3 Months, Reason: Provider Name:Josh allen, 04/20/2025 09:45:00 AM, [address], [address], [place], [id number], Provider Name:Josh allen, 06/08/2025 09:15:00 AM, [address], [address], [place], [place], [id number], Progress Notes * MONA ALONZO:[birth year]10 (54 yo F)Acc No.[id number]:11/06/2024 Progress Notes Patient: JED FITZGERALD Provider: Petros Mcbride M.D. :1970 A ge:54 Y S ex:Female Date:11/06/2024 Address:[address] [place] [address] [place], [id number] Subjective: * Chief Complaints: * 1 . 3 Week Follow Up. * HPI: K nee/Knapp: 54 year old female presents with c/o knee pain P t here to f/u on rt knee pain. Pt states pain has improved since doing PT twice a week . * ROS: D ERMATOLOGY: no R brenda. [...] yes. Alcohol: No. * Medications: T aking Rybelsus 7 MG Tablet 1 tablet at least 30 minutes before first food, beverage or other oral medicine of the day Orally Once a day , Taking Levothyroxine Sodium 75 MCG Tablet 1 tab(s) orally once a day , Taking Spironolactone 25 MG Tablet 1 tablet Orally Once a day , Taking Diclofenac Sodium 1 % Gel as directed Externally Four times a day , Taking metFORMIN HCl ER 500 MG Tablet Extended Release 24 Hour 2 tablets Orally Two times a day , Taking glipiZIDE 10 MG Tablet 1 tab(s) orally once a day , Taking Farxiga 10 MG Tablet 1 tablet Orally Once a day , Taking Losartan Potassium 100 MG Tablet 1 tablet Orally Once a day , Medication List reviewed and reconciled with the patient * Allergies: N .K.D.A. Objective: * Vitals: W t:221.4, Temp:97.9, BP:142/92, HR:99, Nurse:cydney, Ht: 63, BMI:39.21. * Examination: G eneral Examination: General Appearance: N AD. N eurologic Exam: alert and oriented, Intact, no focal deficits, gait normal. R ecent lab results reviewed, eGFR 29. Assessment: * Assessment: 1. A cute pain of right knee - M25.561 (Primary) 2 . C KD (chronic kidney disease) stage 4, GFR 15-29 ml/min - N18.4 Plan: * Treatment: 2. C KD (chronic kidney disease) stage 4, GFR 15-29 ml/min Referral To:, PHYSICAL THERAPY PROFESSOR Nephrology Reason:Please use clinic at [facility] * Procedure Codes: 3 077F SYST BP = 140 MM HG6 IT, 3080F DIAST BP = 90 MM HG * Follow Up: 3 Months * Images: Billing Information: * Visit Code: 48569 Office Visit, Est Pt., Level 3. * Procedure Codes: 3077F SYST BP = 140 MM HG6 IT. 3080F DIAST BP = 90 MM HG. * Electronic signature of Jessica Mcbride MD on 04/14/2025 at 10:53 AM EDT Sign off status: Pending * Provider: Petros Mcbride M.D. Date: 0 11/06/2024 Generated for Edgardoi ng/Fathereseg/eTransmitting on: 0 04/14/2025 10:53 AM EDT History and Physical Notes * HPI (History of Present Illness) Category Sub-Category Detail Notes Category Not es Knee/Knapp knee pain Pt here to f/u o n rt knee pain. Pt states pain has improved since doing PT twice a week Examination Category Sub-Category Detail Notes Category Not es General Examination General Appearance: NAD R ecent lab results reviewed, eGFR 29 Neurologic Exam: alert and oriented, Intact, no focal deficits, gait normal Consultation Request Notes Referral Date Referring Provider Referred Provider Not es 11/06/2024 Josh Mcbride PHYSICAL THERAPY PROFESSOR, , Please us e clinic at [facility]
--- OUTSIDE RECORDS SUMMARY | 2025-02-02 05:15 | XMS_ITS ---
Author Organization [facility] Address [address] [place], [place] [id number] Care Team Providers Care Mri Tech Name Role Phone Josh Mcbride Primary Care Provider [phone] Allergies No Known Allergies Results Component Value Reference Range Notes Glucose (In-House) Reviewed date:02/02/2025 10:13:57 AM Interpretation: Performing Lab: Notes/Report: blood glucose 229 74 - 106 mg/dL CBC Venipuncture (in house) Reviewed date:02/02/2025 10:15:51 AM Interpretation: Performing Lab: Notes/Report: wbc 12.6 3.5 - 10 lymph 20.8% 15 - 50 mid 5.6% 2 - 15 gran 73.6% 35 - 80 rbc 4.31 3.5 - 5.5 hgb 12.6 11.5 - 16.5 hct 37.5 35 - 55 mcv 87.0 75 - 100 mch 29.2 25 - 35 mchc 33.6 31 - 38 platlet 390 100 - 400 Glycohemoglobin A1c (in hous e) Reviewed date:02/02/2025 10:14:28 AM Interpretation: Performing Lab: Notes/Report: glycohemoglobin 10.4% 5 - 6.5 % P-Basic Metabolic Panel (BMP ) Reviewed date:02/07/2025 05:03:56 PM Interpretation:gluc 197, bun 29, Cr 1.73, gfr 35 Performing Lab: Notes/Report: Test performed by [facility] [address] , [address], [place] [address] Kartsen Mullins MD, Jacquard Card Cutter CLIA: [id number] Sodium 138 135-145 mmol/L Potassium 4.9 3.5-5.3 mmol/L Chloride 101 97-108 mmol/L CO2 24 20-32 mmol/L Glucose 197 65-99 mg/dL BUN 29 6-20 mg/dL Creatinine 1.73 0.50-1.00 mg/dL Calcium 9.8 8.6-10.4 mg/dL eGFR by Creatinine 35 >59 mL/min/1.73m2 P-T4 Free (thyroxine) Reviewed date:02/07/2025 05:03:56 PM Interpretation:Normal Performing Lab: Notes/Report: Test performed by [facility] [address] , [facility] [place] [address] Karsten Mullins MD, Jacquard Card Cutter CLIA: [id number] Thyroxine Free (free T4) 1.10 0.86-1.76 ng/dL P-Magnesium Reviewed date:02/07/2025 05:03:56 PM Interpretation:Normal Performing Lab: Notes/Report: Test performed by [facility] [address] , [address], [place] [address] Karsten Mullins MD, Jacquard Card Cutter CLIA: [id number] Magnesium 2.1 1.6-2.4 mg/dL P-TSH Reviewed date:02/07/2025 05:03:56 PM Interpretation:Normal Performing Lab: Notes/Report: Test performed by [facility] [address] , [address], [place] [address] Karsten Mullins MD, Jacquard Card Cutter CLIA: [id number] TSH 5.06 0.43-5.25 mU/L REASON FOR VISIT 3 months Medications Medication SIG (Take, Route, Frequency, Duration) Notes Start Date End Date Status Farxiga 10 MG 1 tablet Orally Once a day; Duration: 90 days Active Losartan Potassium 100 MG 1 tablet Orall y Once a day; Duration: 90 days 10/16/2024 Active Levothyroxine Sodium 75 MCG 1 tab(s) ora lly once a day; Duration: 90 days Active metFORMIN HCl ER 500 MG 2 tablets Orally Two times a day; Duration: 90 days Active Spironolactone 25 MG 1 tablet Orally Onc e a day; Duration: 90 days Active Diclofenac Sodium 1 % as directed Disc Pad Grinder ally Four times a day 09/25/2024 Active glipiZIDE 10 MG 1 tab(s) orally once a day; Duration: 90 days Active Rybelsus 14 MG 1 tablet at least 30 minutes before first food, beverage or other oral medicine of the day Orally Once a day; Duration: 30 days 02/02/2025 Active Vital Signs Weight 218 lbs 02/02/2025 Blood pressure systolic 130 mm Hg 02/03/20 25 Blood pressure diastolic 72 mm Hg 025 Heart Rate 94 /min 02/02/2025 Height 63 in 02/02/2025 BMI 38.61 kg/m2 02/02/2025 Encounters Encounter Location Date [facility] [address], [place] [id number] 02/02/2025 Josh Mcbride Type 2 diabetes richard itus without complication, without long-term current use of insulin E11.9 ; CKD (chronic kidney disease) stage 4, GFR 15-29 ml/min N18.4 ; Acquired hypothyroidism E03.9 and Cramp in lower leg R25.2 Assessments Encounter Date Diagnosis (ICD Code) Assessment Notes Treatment Notes Treatment Clinical Notes Section Notes 02/02/2025 Type 2 diabetes mellitus without complication, without long-term current use of insulin (ICD-10 - E11.9) Not at goal today 02/02/2025 CKD (chronic kidney disease) stage 4, GFR 15-29 ml/min (ICD-10 - N18.4) Called Dr. Valdivia's office at about need for appointment 02/02/2025 Acquired hypothyroidism (ICD-10 - E03.9) 02/02/2025 Cramp in lower leg (ICD-10 - R25.2) Plan Of Treatment Medication Medication Name Sig Start Date Stop Date Notes Levothyroxine Sodium 75 MCG 1 tab(s) ora lly once a day; Duration: 90 days Spironolactone 25 MG 1 tablet Orally Onc e a day; Duration: 90 days Rybelsus 7 mg TAKE ONE TABLET BY M OUTH ONCE A DAY Rybelsus 14 MG 1 tablet at least 30 minutes before first food, beverage or other oral medicine of the day Orally Once a day; Duration: 30 days 02/02/2025 Treatment Notes Assessment Notes Type 2 diabetes mellitus wit hout complication, without long-term current use of insulin Not at goal today CKD (chronic kidney disease) stage 4, GFR 15-29 ml/min Called Dr. Valdivia's office at about chuyita bailey for appointment Next Appt Details Follow Up: 3 Months, Reason: Provider Name:Josh Jay tiffany, 04/20/2025 09:45:00 AM, [address], [address], [place], [id number], Provider Name:Josh Jay tiffany, 06/08/2025 09:15:00 AM, [address], [address], [place], [id number], Progress Notes * JED ALONZODOB:[birth year] (54 yo F)Acc No.[id number]:02/02/2025 Progress Notes Patient: JED FITZGERALD Provider: Petros Mcbride M.D. :1970 A ge:54 Y S ex:Female Date:02/02/2025 Address:[address] [place] [address] [facility] [id number] Subjective: * Chief Complaints: * 1 . 3 months. * HPI: E ndocrinology: 54 year old female presents with c/o Recent Blood Sugars P t here to f/u on DM 2. Pt states she is doing well and does not have any concerns. C ardiology: c/o Blood Pressure Elevated P t here to f/u on Hypertension. Pt's Losartan increased to 100mg on 10/16. Patient has not heard from the Neprologist office about the recent referral. * ROS: D ERMATOLOGY: no R brenda. n o H claritza. G ASTROENTEROLOGY: no N ausea. n o V omiting. M USCULOSKELETAL: Leg cramps y es. U ROLOGY: no D ifficulty urinating. n o B lood in urine. * Medical History: T ype 2 Diabetes, Hypertension, Hypothyroidism, Family Hx Colon Cancer, Chronic kidney disease. * Surgical History: C olonoscopy . * Hospitalization/Major Diagno stic Procedure: D enies Past Hospitalization. * Family History: F ather: 64 yrs, dementia. M other: alive 75 yrs, hypothyroid, diagnosed with Cancer, Hypertension, Diabetes. 1 brother(s) . . Mother has colon cancer. * Social History: C URRENT TOBACCO USE: No . C affeine: yes, frequency: soda. Home smoke detector use: yes. Alcohol: No. * Medications: T aking Diclofenac Sodium 1 % Gel as directed Externally Four times a day , Taking glipiZIDE 10 MG Tablet 1 tab(s) orally once a day , Taking Farxiga 10 MG Tablet 1 tablet Orally Once a day , Taking Losartan Potassium 100 MG Tablet 1 tablet Orally Once a day , Taking Rybelsus 7 mg Tablet TAKE ONE TABLET BY MOUTH ONCE A DAY , Taking metFORMIN HCl ER 500 MG Tablet Extended Release 24 Hour 2 tablets Orally Two times a day , Taking Spironolactone 25 MG Tablet 1 tablet Orally Once a day , Taking Levothyroxine Sodium 75 MCG Tablet 1 tab(s) orally once a day , Medication List reviewed and reconciled with the patient * Allergies: N .K.D.A. Objective: * Vitals: W t: 218, Temp: 97.9, BP: 130/72, HR: 94, Nurse: cydney, Ht: 63, BMI:38.61. * Examination: C ardiology: General Appearance: p leasant, NAD. H EENT: u nremarkable. H eart sounds: R RR, normal S1, S2. L ungs: c lear, no rales or wheezes.?Extremities: t race bilateral leg edema. Assessment: * Assessment: 1. T ype 2 diabetes mellitus without complication, without long-term current use of insulin - E11.9 (Primary) 2 . C KD (chronic kidney disease) stage 4, GFR 15-29 ml/min - N18.4 3 . A cquired hypothyroidism - E03.9 4 . C ramp in lower leg - R25.2 Plan: * Treatment: Value Reference Range b lood glucose 229 74 - 106 mg/dL * Calista Dunbar 02/02/2025 10:13: 50 AM EDT > Provider reviewed results while patient in office. ?LAB: Glycohemoglobin A1c (in house) (Collection Date & Time - 02/02/2025)* Value Reference Range g lycohemoglobin 10.4% 5 - 6.5 % * Calista Dunbar 02/02/2025 10:14: 22 AM EDT > Provider reviewed results while patient in office. Notes: Not at goal today??2.?CKD (chronic kidney disease) stage 4, GFR 15-29 ml/min? Refill Spironolactone Tablet, 25 MG, 1 tablet, Orally, Once a day, 90 days, 90, Refills 1.?LAB: P-Basic Metabolic Panel (BMP) (Collection Date & Time - 02/02/2025 08:49 AM)?gluc 197, bun 29, Cr 1.73, gfr 35* Value Reference Range B UN 29 H 6-20 - mg/dL * C alcium 9.8 8.6-10.4 - mg/dL * C hloride 101 97-108 - mmol/L * C O2 24 20-32 - mmol/L * C reatinine 1.73 H 0.50-1.00 - mg/dL * G lucose 197 H 65-99 - mg/dL * P otassium 4.9 3.5-5.3 - mmol/L * S odium 138 135-145 - mmol/L * e GFR by Creatinine 35 L >59 - mL/min/1.73m2 * Jelly Pope 02/07/2025 05:03 :48 PM EDT > See phone encounter ?LAB: CBC Venipuncture (in house) (Collection Date & Time - 02/02/2025)* Value Reference Range w bc 12.6 3.5 - 10 * l ymph 20.8% 15 - 50 * m id 5.6% 2 - 15 * g ran 73.6% 35 - 80 * r bc 4.31 3.5 - 5.5 * h gb 12.6 11.5 - 16.5 * h ct 37.5 35 - 55 * m cv 87.0 75 - 100 * m ch 29.2 25 - 35 * m chc 33.6 31 - 38 * p latlet 390 100 - 400 * Calista Dunbar 02/02/2025 10:15: 46 AM EDT > Provider reviewed results while patient in office. Notes: Called Dr. Valdivia's office at about need for appointment??3.?Acquired hypothyroidism? Refill Levothyroxine Sodium Tablet, 75 MCG, 1 tab(s), orally, once a day, 90 days, 90, Refills 1. ?LAB: P-T4 Free (thyroxine) (Collection Date & Time - 02/02/2025 08:49 AM)? Normal* Value Reference Range T hyroxine Free (free T4) 1.10 0.86-1.76 - ng/d L * Jelly Pope 02/07/2025 05:03 :48 PM EDT > See phone encounter ?LAB: P-TSH (Collection Date & Time - 02/02/2025 08:49 AM)?Normal* Value Reference Range T SH 5.06 0.43-5.25 - mU/L * Jelly Pope 02/07/2025 05:03 :48 PM EDT > See phone encounter 4.?Cramp in lower leg?LAB: P-Basic Metabolic Panel (BMP) (Collection Date & Time - 02/02/2025 08:49 AM)?gluc 197, bun 29, Cr 1.73, gfr 35* Value Reference Range B UN 29 H 6-20 - mg/dL * C alcium 9.8 8.6-10.4 - mg/dL * C hloride 101 97-108 - mmol/L * C O2 24 20-32 - mmol/L * C reatinine 1.73 H 0.50-1.00 - mg/dL * G lucose 197 H 65-99 - mg/dL * P otassium 4.9 3.5-5.3 - mmol/L * S odium 138 135-145 - mmol/L * e GFR by Creatinine 35 L >59 - mL/min/1.73m2 * Jelly Pope 02/07/2025 05:03 :48 PM EDT > See phone encounter ?LAB: P-Magnesium (Collection Date & Time - 02/02/2025 08:49 AM)?Normal* Value Reference Range M agnesium 2.1 1.6-2.4 - mg/dL * Jelly Pope 02/07/2025 05:03 :48 PM EDT > See phone encounter * Procedure Codes: 8 2950 GLUCOSE TEST, [address]704 GLYCATED HEMOGLOBIN TEST, Modifiers: QW , 16503 CBC WITH AUTO DIFF, 1036F TOBACCO NON-USER, 3046F HEMOGLOBIN A1C LEVEL > 9.0%, G8783 BP SCR PRFRM RCMDD DEFIND SCR INTVL, G8752 MOST RECENT SYSTOLIC BP < 140MM HG, G8754 MOST RECENT DIASTOLIC BP < 90MM HG * Follow Up: 3 Months * Images: Billing Information: * Visit Code: 74843 Office Visit, Est Pt., Level 4. * Procedure Codes: 53367 GLUCOSE TEST. 02747 GLYCATED HEMOGLOBIN TEST. Modifiers: QW 49566 CBC WITH AUTO DIFF. 1036F TOBACCO NON-USER. 3046F HEMOGLOBIN A1C LEVEL > 9.0%. G8783 BP SCR PRFRM RCMDD DEFIND SCR INTVL. G8752 MOST RECENT SYSTOLIC BP < 140MM HG. G8754 MOST RECENT DIASTOLIC BP < 90MM HG. * Electronic signature of Jessica Mcbride MD on 04/14/2025 at 10:54 AM EDT Sign off status: Pending * Provider: Petros Mcbride M.D. Date: 0 02/02/2025 Generated for Polo cortes/Bridger/Stefanieitting on: 0 04/14/2025 10:54 AM EDT History and Physical Notes * HPI (History of Present Illness) Category Sub-Category Detail Notes Category Not es Endocrinology Recent Blood Sugars Pt here to f /u on DM 2. Pt states she is doing well and does not have any concerns Cardiology Blood Pressure Elevated Pt here to f/u on Hypertension. Pt's Losartan increased to 100mg on 10/16. Patient has not heard from the Neprologist office about the recent referral Examination Category Sub-Category Detail Notes Category Not es Cardiology Lungs: clear, no rales or wheezes HEENT: unremarkable Heart sounds: RRR, normal S1, S2 Extremities: trace bilateral leg edema General Appearance: pleasant, NAD
--- OUTSIDE RECORDS SUMMARY | 2025-02-19 13:40 | XMS_ITS | Encounter Summary ---
Author Organization [facility] Address [address] [place] [address] Care Team Providers Care Cost Accounting Analyst Name Role Phone Josh Mcbride MD Primary Care Provider + [phone] Reason for Referral * Consultation (Routine) - Authorized Specialty Diagnoses / Procedures Referred By Opal gordillo Referred To Contact Diagnoses Stage 3b chronic kidney disease (CMS/HCC) Suhas Aguero MD [address] [address] Phone: tel: fax: Referral ID Status Reason Start Date Expiration Date V isits Requested Visits Authorized [id number] Authorized 02/19/2025 08/21/2026 1 1 * Imaging (Routine) - Authorized Specialty Diagnoses / Procedures Referred By Opal gordillo Referred To Contact Radiology Diagnoses Stage 3b chronic kidney disease (CMS/HCC) Essential hypertension, benign Procedures US Renal Complete Suhas Aguero MD [address] [address] Phone: tel: fax: Referral ID Status Reason Start Date Expiration Date V isits Requested Visits Authorized [id number] Authorized 02/19/2025 08/21/2026 1 1 Reason for Visit * Reason Comments Consult * Consultation (Routine) - Closed Specialty Diagnoses / Procedures Referred By Opal gordillo Referred To Contact Nephrology Diagnoses CKD (chronic kidney disease) Josh Mcbride MD [address] [address] Phone: tel: fax: [facility] Nephrology, Bone & Mineral Metabolism [address] , [address] [place] [address] Phone: tel: fax: Referral ID Status Reason Start Date Expiration Date V isits Requested Visits Authorized [id number] Closed Specialty Services Required 02/02/2025 08/04/2026 1 1 Encounter Details Date Type Department Care Team (Late st Contact Info) Description 02/19/2025 1:40 PM EDT Office Visit [facility] Nephrology, Bone & Mineral Metabolism [address] , [address] [place] [address] Suhas Aguero MD [address] [place] [id number] Stage 3b chronic kidney disease (CMS/HCC) (Primary Dx); Essential hypertension, benign; Type 2 diabetes mellitus with stage 3b chronic kidney disease, without long-term current use of insulin ([facility]); Other specified hypothyroidism Social History Tobacco Use Types Packs/Day Years Used Date Smoking Tobacco: Never Passive Smoke Exposure: Never Smokeless Tobacco: Never Tobacco Cessation:Counseling Given: Not Answered Alcohol Use Standard Drinks/Week Comments Never 0 (1 standard drink = 0.6 oz pur e alcohol) PHQ-2 Answer Date Recorded Patient Health Questionnaire-2 Score 0 02/19/2025 Comments Unknown Sex and Gender Information Value Date Recorded Sex Assigned at Not on file Legal Sex Female 6:58 PM EDT Gender Identity Not on file Sexual Orientation Not on file documented as of this encounter Last Filed Vital Signs Vital Sign Reading Time Taken Comments Blood Pressure 129/85 02/19/2025 1:29 PM EDT Pulse 78 02/19/2025 1:29 PM EDT Temperature 36.6 C (97.9 F) 02/19/2025 1:29 PM EDT Respiratory Rate - - Oxygen Saturation 98% 02/19/2025 1:29 PM EDT Inhaled Oxygen Concentration - - Weight 100 kg (221 lb) 02/19/2025 1:29 PM EDT Height 162.6 cm (5' 4 ) 02/19/2025 1:29 PM EDT Body Mass Index 37.93 02/19/2025 1:29 PM EDT documented in this encounter Functional Status * Over the past 2 weeks, how often have you been bothered by any of the following problems? Question Answer Date of Assessment Author Little interest or pleasure in doing things Not at all 02/19/2025 1:28 PM EDT Josiane Young Feeling down, depressed, or hopeless Not at all 02/19/2025 1:28 PM EDT Josiane Young Patient Health Questionnaire -2 Score 0 02/19/2025 1:28 PM EDT Josiane Young * If you checked off any problems on this questionnaire so far, Question Answer Date of Assessment Author How difficult have these problems made it for you to do your work, take care of things at home, or get along with other people? Not difficult at all 02/19/2025 1:28 PM EDT Loni Young documented as of this encounter Miscellaneous Notes * Progress Notes - Shilo Chu MD - 02/19/2025 1:40 PM EDT Images from the original note were not included. Nephrology Outpatient Clinic [facility] Provider: Referring Provider: Josh Mcbride MD Reason for consult: Chronic Kidney Disease Subjective 54-year-old female with a past medical history of type 2 diabetes mellitus and hypertension, currently on semaglutide p.o., losartan 100 mg, levothyroxine 75 mcg, metformin 500 mg, dapagliflozin 10 mg, glipizide 10 mg, spironolactone 25 mg, and aspirin 81 mg. She has been referred to the nephrologyclinic for CKD evaluation, with the last set of labs showing a creatinine level of 1.73, EGFR of 35, and an albumin to creatinine ratio of 3 mcg/mg. Her last hemoglobin A1c in 02/2025 was 10.4%. She reports no other known medical conditions apart from hypertension, diabetes, and thyroid issues. She has had diabetes for over 15 years and has been on metformin for 15 years. She started Farxigalast year. She has been on blood pressure medication for 2 years. She does not monitor her blood pressure at home but believes it is normal. She has been taking Motrin for over 20 years, with the last dose of 2 pills taken 2 weeks ago. She uses it every couple of weeks for migraines. She does not use naproxen or Aleve. She takes baby aspirin once daily. She reports no history of kidney stones, painful urination, UTIs, blood in urine, orcola-colored urine. She experiences leg swelling when standing for extended periods but reports no d ifficulty breathing, shortness of breath, or difficulty lying flat. She has not been hospitalized recently. She reports no burning during urination, hesitancy, dribbling after urination, or waking upat night to urinate more than usual. Her diabetes control varies, with recent readings of 229 and 133. Her last eye check was this year and showed no issues. She experiences mild numbness in her feet. She is under the care of her familydoctor for diabetes management. ROS Negative unless otherwise stated above in the HPI. History: Past Medical History[1] Problem List[2] Surgical History[3] Family History[4] Family history includes a brother with kidney disease and a mother who had stents placed. Social History Socioeconomic History Marital status: Spouse name: Not on file Number of children: Not on file Years of education: Not on file Highest education level: Not on file Occupational History Not on file Tobacco Use Smoking status: Never Passive exposure: Never Smokeless tobacco: Never Substance and Sexual Activity Alcohol use: Never Drug use: Never Sexual activity: Not on file Other Topics Concern Not on file Social History Narrative Not on file Social Drivers of Health Financial Resource Strain: Not on file Food Insecurity: Not on file Transportation Needs: Not on file Physical Activity: Not on file Stress: Not on file Social Connections: Not on file Intimate Partner Violence: Not on file Housing Stability: Not on file Allergies[5] Medications: Current Medications: Current Outpatient Medications Medication Instructions aspirin 81 mg, Daily dapagliflozin (Farxiga) 10 MG tablet Every 24 hours glipiZIDE (Glucotrol) 10 MG tablet Every 24 hours levothyroxine (Synthroid, Levoxyl) 75 MCG tablet Every 24 hours losartan (Cozaar) 100 MG tablet Every 24 hours metFORMIN XR (Glucophage-XR) 500 MG 24 hr tablet Every 12 hours semaglutide (Rybelsus) 14 MG tablet Every 24 hours spironolactone (Aldactone) 25 MG tablet Every 24 hours UNABLE TO FIND Take by mouth. Potassium 1000mg Objective Visit Vitals BP 129/85 (BP Location: Left arm, Patient Position: Sitting, BP Cuff Size: Adult) Pulse 78 Temp 36.6 ??C (97.9 ??F) (Oral) Ht 1.626 m (5' 4 ) Wt 100 kg (221 lb) SpO2 98% BMI 37.93 kg/m?? Smoking Status Never BSA 2.13 m?? Temp: [36.6 ??C (97.9 ??F)] 36.6 ??C (97.9 ??F) Heart Rate: [78] 78 BP: (129)/(85) 129/85 Physical Exam: Constitutional: No acute distress, well-nourished Respiratory: No signs of resp distress or accessory muscle use. Cardiovascular: Regular rate Gastrointestinal: Soft, non-tender, non-distended Ext: No LE edema Neurologic: Alert and oriented Psych: Tearful/anxious during the visit Laboratory: LAB RESULTS Imaging: None Impression & Plan: 1. Chronic Kidney Disease: Stage IIIb. - Creatinine 1.73, EGFR 35, albumin to creatinine ratio 3 mcg/mg. - Likely due to long-standing diabetes and hypertension + NSAID use - Reassured that dialysis is not required at this time. - Renal U/S - Repeat urine test to check for hematuria. Check SPEP + FLC as well. - Order lab work to evaluate calcium levels, parathyroid hormone levels, and potential bone marrow abnormalities. - Advise to avoid Motrin, Aleve, and naproxen; use Tylenol or acetaminophen for pain management. - Consider referral to neurologist if persistent migraines occur and are not controlled by Tylenol. 2. Type 2 Diabetes Mellitus: Poorly controlled. - Hemoglobin A1c 10.4% in 02/2025. - Continue current medication regimen: semaglutide (oral), metformin 500 mg, dapagliflozin 10 mg, glipizide 10 mg. - Monitor blood sugar levels closely. - Consider referral to fishing tool operator if A1c remains uncontrolled in the next 6 months to a year. 3. Hypertension: Well-controlled. - Continue current medication regimen: losartan 100 mg, spironolactone 25 mg. - Monitor blood pressure at home and maintain a log. - Target blood pressure <130/85 mmHg. - Pharmacist to review blood pressure logs and adjust medications as needed. 4. Migraines: Chronic. - Long history of using Motrin for migraine management. - Advise to discontinue Motrin due to potential impact on kidney function. - Consider alternative migraine medications if Tylenol is ineffective. - Consider referral to neurologist for further evaluation and management. Follow-up - Follow-up visit scheduled in 2 months. - Counseling provided regarding strict glycemic control and BP control. Ongoing routine follow up with PCP and our clinic to be able to slow the progression of CKD. Shilo Chu MD. FACP. Nephrology and Critical Care Medicine Fellow Pager: [phone] or [employer] chat [1] History reviewed. No pertinent past medical history. [2] Patient Active Problem List Diagnosis Stage 3b chronic kidney disease (CMS/HCC) Essential hypertension, benign Type 2 diabetes mellitus with stage 3b chronic kidney disease, without long-term current use of insulin (CMS/HCC) Other specified hypothyroidism [3] History reviewed. No pertinent surgical history. [4] History reviewed. No pertinent family history. [5] No Known Allergies Cosigned by Suhas Aguero MD at 02/28/2025 1:21 PM EDT Associated attestation - Suhas Aguero MD - 02/28/2025 1:21 PM EDT I saw and evaluated the patient with the resident/fellow. I discussed the case with the resident/fellow and agree with the findings and plan as documented. documented in this encounter Plan of Treatment Upcoming Encounters Date Type Department Care Team (Late st Contact Info) Description 04/27/2025 1:00 PM EDT Appointment [facility] Ultrasound [address] [place] [address] 04/30/2025 2:40 PM EDT Office Visit [facility] Nephrology, Bone & Mineral Metabolism [address], [address] [place] [address] Scheduled Orders Name Type Priority Associated Diagnoses Orde r Schedule Renal Function Panel, Plasma Lab Routine Stage 3b chronic kidney disease ([facility]) Essential hypertension, benign Expected: 04/23/2025 (Approximate), Expires: 08/23/2026 Urinalysis with reflex microscopic (Culture NOT Included) Lab Routine Stage 3b chronic kidney disease ([facility]) Essential hypertension, benign Expected: 04/23/2025 (Approximate), Expires: 08/23/2026 Protein, Random, Urine with Creatinine Lab Routine Stage 3b chronic kidney disease ([facility]) Essential hypertension, benign Expected: 04/23/2025 (Approximate), Expires: 08/23/2026 Creatinine, Random, Urine Lab Routine Stage 3b chronic kidney disease ([facility]) Essential hypertension, benign Expected: 04/23/2025 (Approximate), Expires: 08/23/2026 CBC and Differential Lab Routine Stage 3b chronic kidney disease ([facility]) Essential hypertension, benign Expected: 04/23/2025 (Approximate), Expires: 08/23/2026 PTH Intact Total Lab Routine Stage 3b chronic kidney disease ([facility]) Essential hypertension, benign Expected: 04/23/2025 (Approximate), Expires: 08/23/2026 Vitamin D 25 Hydroxy Lab Routine Stage 3b chronic kidney disease ([facility]) Essential hypertension, benign Expected: 04/23/2025 (Approximate), Expires: 08/23/2026 Protein electrophoresis, serum Lab Routine Stage 3b chronic kidney disease ([facility]) Essential hypertension, benign Expected: 04/23/2025 (Approximate), Expires: 08/23/2026 [place] Lambda Quant Free Light Chains w/Ratio Lab Routine Stage 3b chronic kidney disease ([facility]) Essential hypertension, benign Expected: 04/23/2025 (Approximate), Expires: 08/23/2026 US Renal Complete Imaging Routine Stage 3b chronic kidney disease ([facility]) Essential hypertension, benign Expected: 04/23/2025 (Approximate), Expires: 08/23/2026 Albumin-creatinine ratio, urine, random Lab Routine Stage 3b chronic kidney disease ([facility]) Expected: 02/19/2025 (Approximate), Expires: 08/23/2026 Scheduled Referrals Name Type Priority Associated Diagnoses Order Schedule Follow Up Nephrology Outpatient Referral Routine Stage 3b chronic kidney disease (CMS/HCC) Expected: 04/23/2025 (Approximate), Expires: 03/22/2026 documented as of this encounter Visit Diagnoses Diagnosis Stage 3b chronic kidney disease (CMS/HCC)- Primary Essential hypertension, benign Type 2 diabetes mellitus with stage 3b chronic kidney disease, without long-term current use of insulin (CMS/HCC) Other specified hypothyroidism documented in this encounter Additional Health Concerns Assessment Noted Time A fall risk assessment has been complete d for the patient 02/19/2025 1:28 PM EDT A Body Mass Index follow-up plan has been documented for the patient 02/28/2025 1:21 PM EDT documented as of this encounter Care Teams Cost Accounting Analyst Relationship Specialty Start Date End Date Josh Mcbride MD [address] [place] [address] PCP - General 12/20/20 documented as of this encounter
--- OUTSIDE RECORDS SUMMARY | 2025-04-14 10:53 | XMS_ITS | Clinical Summary ---
Author Organization [facility] Address [address], [address] [place] [address] Care Team Providers Care Cement Block Maker Name Role Phone System, Referring Not In Primary Care Provider U navailable Social History Tobacco Use Types Packs/Day Years Used Date Smoking Tobacco: Never Assessed Comments Unknown Sex and Gender Information Value Date Recorded Sex Assigned at Not on file Legal Sex Female 1:01 PM EDT Gender Identity Not on file Sexual Orientation Not on file Plan of Treatment Not on file Care Teams Cement Block Maker Relationship Specialty Start Date End Date System, Referring Not In PCP - General 11/07/13
--- OUTSIDE RECORDS SUMMARY | 2025-04-14 10:53 | XMS_ITS | Patient Health Record ---
Author Organization [facility] [place] Address [address] [place] [id number] Care Team Providers Care Demolition Hammer Operator Name Role Phone Josh Mcbride Primary Care Provider Allergies No Known Allergies Results Component Value Reference Range Notes X ray : Knee, right Reviewed date:01/05/2025 09:52:16 AM Interpretation:degenerative changes, see 09/25 f/u appt Performing Lab: Notes/Report: degenerative changes, see 09/25 f/u appt P-TSH Reviewed date:02/07/2025 05:03:56 PM Interpretation:Normal Performing Lab: Notes/Report: Test performed by [facility] [address] [place], [place] [address]Credit [address] , [address], [place] [address] Karsten Mullins MD, Kitchen Supervisor CLIA: [id number] TSH 5.06 0.43-5.25 mU/L P-Magnesium Reviewed date:02/07/2025 05:03:56 PM Interpretation:Normal Performing Lab: Notes/Report: Test performed by [facility] [address] [place], [place] [address] , [address], [place] [address] Karsten Mullins MD, Kitchen Supervisor CLIA: [id number] Magnesium 2.1 1.6-2.4 mg/dL P-T4 Free (thyroxine) Reviewed date:02/07/2025 05:03:56 PM Interpretation:Normal Performing Lab: Notes/Report: Test performed by [facility] [address] [place], [place] [address]Credit Coach Raina [address], [address], [place] [address] Karsten Mullins MD, Kitchen Supervisor CLIA: [id number] Thyroxine Free (free T4) 1.10 0.86-1.76 ng/dL P-Basic Metabolic Panel (BMP ) Reviewed date:02/07/2025 05:03:56 PM Interpretation:gluc 197, bun 29, Cr 1.73, gfr 35 Performing Lab: Notes/Report: Test performed by [facility] [address] [place] [address] , [address], [place] [address] Karsten Mullins MD, Kitchen Supervisor CLIA: [id number] Sodium 138 135-145 mmol/L Potassium 4.9 3.5-5.3 mmol/L Chloride 101 97-108 mmol/L CO2 24 20-32 mmol/L Glucose 197 65-99 mg/dL BUN 29 6-20 mg/dL Creatinine 1.73 0.50-1.00 mg/dL Calcium 9.8 8.6-10.4 mg/dL eGFR by Creatinine 35 >59 mL/min/1.73m2 Glycohemoglobin A1c (in hous e) Reviewed date:02/02/2025 10:14:28 AM Interpretation: Performing Lab: Notes/Report: glycohemoglobin 10.4% 5 - 6.5 % CBC Venipuncture (in house) Reviewed date:02/02/2025 10:15:51 [...] - 38 platlet 390 100 - 400 Glucose (In-House) Reviewed date:02/02/2025 10:13:57 AM Interpretation: Performing Lab: Notes/Report: blood glucose 229 74 - 106 mg/dL P-Microalbumin/Creatinine, R andom Urine Sample Reviewed date:10/17/2024 09:05:01 AM Interpretation:Normal Performing Lab: Notes/Report: Test performed by [facility] [address] [place] [address] , [address], [place] [address] Karsten Mullins MD, Kitchen Supervisor CLIA: [id number] Albumin/Creatinine Ratio, Urine 3 0-30 ug/m g Microalbumin, Urine, Random 0.4 Creatinine, Urine 152.4 P-TSH reflex to FT4 Reviewed date:10/17/2024 09:05:01 AM Interpretation:Normal Performing Lab: Notes/Report: Test performed by [facility] [address] [place] [address] , [facility] [place] [address] Karsten Mullins MD, Kitchen Supervisor CLIA: [id number] TSH reflex to FT4 4.07 0.43-5.25 mU/L P-Phosphorus Reviewed date:10/17/2024 09:05:01 AM Interpretation:Normal Performing Lab: Notes/Report: Test performed by [facility] [address] , [place] [address] Karsten Mullins MD, Kitchen Supervisor CLIA: [id number] Phosphorus 3.8 2.5-4.5 mg/dL P-Lipid Panel Reviewed date:10/17/2024 09:05:01 AM Interpretation:chol 214, hdl 39, chol/hdl 5.49, non-hdl 175, ldl 149 Performing Lab: Notes/Report: Test performed by [facility] [address] [place] [address] , [place] [address] Karsten Mullins MD, Kitchen Supervisor CLIA: [id number] Cholesterol 214 <200 mg/dL Triglycerides 130 <150 [...] Results: 149 Units: mg/dL % Change: +15% P-Comprehensive Metabolic Pa raghu (CMP) Reviewed date:10/17/2024 09:05:01 AM Interpretation:gluc 116, bun 23, Cr 1.57, gfr 29 Performing Lab: Notes/Report: Test performed by [facility] [employer] [address] [place] [address] , [address], [place] [address] Karsten Mullins MD, Kitchen Supervisor CLIA: [id number] Sodium 141 135-145 mmol/L Potassium 4.6 3.5-5.3 [...] 0.4 <0.2-1.2 mg/dL A/G Ratio 1.4 1.1-2.5 Glycohemoglobin A1c (in hous e) Reviewed date:10/17/2024 09:05:01 AM Interpretation:8.9 Performing Lab: Notes/Report: 8.9 glycohemoglobin 8.9% 5 - 6.5 % Glucose (In-House) Reviewed date:10/16/2024 03:27:45 PM Interpretation:133 Performing Lab: Notes/Report: 133 blood glucose 133 74 - 106 mg/dL P-Parathyroid Hormone (PTH) Intact Reviewed date:06/06/2024 04:23:12 PM Interpretation:Normal Performing Lab: Notes/Report: Test performed by [facility] [address] [place] [address] , [place] [address] Karsten Mullins MD, Kitchen Supervisor CLIA: [id number] Parathyroid Hormone (PTH) Intact 30.7 15.0-65.0 pg/mL P-Phosphorus Reviewed date:06/06/2024 04:23:11 PM Interpretation:Normal Performing Lab: Notes/Report: Test performed by [facility] [address] [place] [address] [place] [address] Karsten Mullins MD, Kitchen Supervisor CLIA: [id number] Phosphorus 3.4 2.5-4.5 mg/dL P-Magnesium Reviewed date:06/06/2024 04:23:11 PM Interpretation:Normal Performing Lab: Notes/Report: Test performed by [facility] [address] [place] [address] , [address], [place] [address] Karsten Mullins MD, Kitchen Supervisor CLIA: [id number] Magnesium 2.1 1.6-2.4 mg/dL P-Basic Metabolic Panel (BMP ) Reviewed date:06/06/2024 04:23:11 PM Interpretation:gluc 163, bun 23, Cr 1.74, gfr 34 Performing Lab: Notes/Report: Test performed by [employer] [facility] [employer] [address] [place] [address] , [address], [place] [address] Karsten Mullins MD, Kitchen Supervisor CLIA: [id number] Sodium 138 135-145 mmol/L Potassium 4.7 3.5-5.3 mmol/L Chloride 104 97-108 mmol/L CO2 24 22-32 mmol/L Glucose 163 65-99 mg/dL BUN 23 6-20 mg/dL Creatinine 1.74 0.50-1.00 mg/dL Calcium 9.4 8.6-10.4 mg/dL eGFR by Creatinine 34 >59 mL/min/1.73m2 Glycohemoglobin A1c (in hous e) Reviewed date:06/06/2024 04:23:12 PM Interpretation:9.4 Performing Lab: Notes/Report: 9.4 glycohemoglobin 9.4% 5 - 6.5 % Glucose (In-House) Reviewed date:06/06/2024 04:23:12 PM Interpretation:190 Performing Lab: Notes/Report: 190 blood glucose 190 74 - 106 mg/dL Mammogram Reviewed date:11/30/2024 02:50:47 PM Interpretation:Negative Performing Lab: Notes/Report: Negative result Negative Reason For Referral Reason Please use [facility] rehab Diagnosis 1 Acute pain of right knee (M25.561) [facility] Referring Provider First Name Josh Referring Provider Last Name Rae Referring Provider [facility] ctice Referred Provider Physical Therapy, . Referred Provider Specialty Physical The rapist General Notes Katarina Garrido 09/26/19 9:24:18 AM > faxed to [facility] PT Referral Priority Routine Reason Please use [facility] Diagnosis 1 CKD (chronic kidney disease) stage 4, GFR 15-29 ml/min (N18.4) Referral Organization [facility] Referring Provider First Name Josh Referring Provider Last Name Rae Referring Provider [facility] ctice Referred Provider SOLDERING MACHINE SETTER, , Referred Provider Specialty Nephrology General Notes Katarina Garrido 2024 10:31:19 AM > initiated referral via [facility] website Referral Priority Routine Medications Medication SIG (Take, Route, Frequency, Duration) Notes Start Date End Date Status Diclofenac Sodium 1 % as directed Media Manager ally Four times a day 09/25/2024 Active Farxiga 10 MG 1 tablet Orally Once a day; Duration: 90 days Active glipiZIDE 10 MG 1 tab(s) orally once a day; Duration: 90 days Active Losartan [...] e a day; Duration: 90 days Active Rybelsus 14 MG 1 tablet at least 30 minutes before first food, beverage or other oral medicine of the day Orally Once a day; Duration: 30 days Active Immunizations Vaccine Route Administration Date Status Comme nts COVID 19 Pfizer Unknown 02/08/2021 Administered COVID 19 Pfizer Unknown 03/01/2021 Administered Hepatitis A (adult) Unknown 07/26/2018 Administered Problems Problem Type SNOMED Code ICD Code Onset Dates Problem Status W/U Status Risk Notes Problem Essential hypertension (95595941) Essential hypertension (I10) Active confirmed Problem Morbid obesity (933096622) Morbid obesity (E66.01) Active confirmed Problem Arthropathy of lumba r facet joint (202535554) Lumbar facet arthropathy (M47.816) Active confirmed Problem Intermenstrual bleeding - irregular (12707359) Menorrhagia with irregular cycle (N92.1) Active confirmed Problem Chronic pain (80939622) Other chronic pain (G89.29) Active confirmed Problem Acquired hypothyroidism (745816577) Acquired hypothyroidism (E03.9) Active confirmed Problem Obesity (109549962) Non morbid o besity due to excess calories (E66.09) Active confirmed Problem Chronic kidney disease stage 4 (283048669) CKD (chronic kidney disease) stage 4, GFR 15-29 ml/min (N18.4) Active confirmed Problem Type II diabetes mellitus without complication (172906226) Type 2 diabetes mellitus without complication, without long-term current use of insulin (E11.9) Active confirmed Problem Urinary incontinence (223175826) Urinary incontinence, unspecified type (R32) Active confirmed Problem Pure hypercholesterolemia (514873816) Pure hypercholesterolemia (E78.00) Active confirmed Problem Chronic kidney disease stage 3A (014604459) Stage 3a chronic kidney disease (N18.31) Active confirmed Problem Arthritis of lumbosacral spine (disorder) (849135420) Lumbar and sacral arthritis (M47.817) Active confirmed Problem Chronic kidney disease stage 3B (disorder) (086924778) Stage 3b chronic kidney disease (CKD) (N18.32) Active confirmed Vital Signs Heart Rate 94 /min 02/02/2025 Blood pressure diastolic 72 mm Hg 02/02/2025 Height 63 in 02/02/2025 Blood pressure systolic 130 mm Hg 02/02/2025 Weight 218 lbs 02/02/2025 BMI 38.61 kg/m2 02/02/2025 Encounters Encounter Location Date Provider [facility] [address] [place] [id number] 06/02/2024 [place] Type 2 diabetes richard itus without complication, without long-term current use of insulin E11.9 ; Stage 3b chronic kidney disease (CKD) N18.32 and Cramp in limb R25.2 [facility] [place] [facility] [address] [place], [place] [id number] 09/01/2024 Josh [place] Acute pain of right knee M25.561 [facility] [place] [facility] [address] [place], [place] [id number] 09/25/2024 Josh [place] Acute pain of right knee M25.561 [facility] [address] [place], [place] [id number] 10/16/2024 Josh [place] Essential hypertensi on I10 ; Type 2 diabetes mellitus without complication, without long-term current use of insulin E11.9 ; Pure hypercholesterolemia E78.00 ; Stage 3b chronic kidney disease (CKD) N18.32 ; Non morbid obesity due to excess calories E66.09 and Acute pain of right knee M25.561 [facility] [address] [place], [place] [id number] 11/06/2024 Josh [place] Acute pain of right knee M25.561 and CKD (chronic kidney disease) stage 4, GFR 15-29 ml/min N18.4 [facility] [address] [place], [place] [id number] 02/02/2025 Josh [place] Type 2 diabetes richard itus without complication, without long-term current use of insulin E11.9 ; CKD (chronic kidney disease) stage 4, GFR 15-29 ml/min N18.4 ; Acquired hypothyroidism E03.9 and Cramp in lower leg R25.2 [facility] [address] [place], [place] [id number] 06/06/2024 Josh [place] [facility] [address] [place], [place] [id number] 09/25/2024 Josh [place] [facility] [address] [place], [place] [id number] 10/17/2024 Josh [place] [facility] [address] [place] [id number] 02/07/2025 Josh [place] Assessments Encounter Date Diagnosis (ICD Code) Assessment Notes Treatment Notes Treatment Clinical Notes Section Notes 06/02/2024 Type 2 diabetes mellitus without complication, without long-term current use of insulin (ICD-10 - E11.9) 06/02/2024 Stage 3b chronic kid ashleigh disease (CKD) (ICD-10 - N18.32) 09/01/2024 Acute pain of right knee (ICD-10 - M25.561) Rest, ice, compression and elevation 09/25/2024 Acute pain of right knee (ICD-10 - M25.561) 10/16/2024 Essential hypertensi on (ICD-10 - I10) Not at goal 10/16/2024 Type 2 diabetes mellitus without complication, without long-term current use of insulin (ICD-10 - E11.9) 11/06/2024 Acute pain of right knee (ICD-10 - M25.561) Much improved, OK to return to work. Patient was off work from 09/20/24 to 11/07/24 11/06/2024 CKD (chronic kidney disease) stage 4, GFR 15-29 ml/min (ICD-10 - N18.4) 02/02/2025 CKD (chronic kidney disease) stage 4, GFR 15-29 ml/min (ICD-10 - N18.4) Called Dr. Valdivia's office at about need for appointment 02/02/2025 Type 2 diabetes mellitus without complication, without long-term current use of insulin (ICD-10 - E11.9) Not at goal today 02/02/2025 Acquired hypothyroid ism (ICD-10 - E03.9) 10/16/2024 Pure hypercholesterolemia (ICD-10 - E78.00) 06/02/2024 Cramp in limb (ICD-1 0 - R25.2) 10/16/2024 Stage 3b chronic kid ashleigh disease (CKD) (ICD-10 - N18.32) 02/02/2025 Cramp in lower leg (ICD-10 - R25.2) 10/16/2024 Non morbid obesity d ue to excess calories (ICD-10 - E66.09) 10/16/2024 Acute pain of right knee (ICD-10 - M25.561) Spoke to staff at [facility] rehab department. Requested she increase visits to twice weekly Plan Of Treatment Next Appt Details Provider Name:Josh allen, 04/20/2025 09:45:00 AM, [address] [facility], [address], [place], [place], [id number], Provider Name:Josh allen, 06/08/2025 09:15:00 AM, [address] [facility], [address], [place], [place], [id number], Insurance Providers Payer Name Payer Address Payer Phone Subscriber Number Group Number Insured Name Patient Relationship to Insured Coverage Start Date Coverage End Date JAKE ESCOBEDO [address] [place] [address] [id number] Self - patient is the insured Medical (General) History Medical History History ICD Code Type 2 Diabetes Hypertension Hypothyroidism Family Hx Colon Cancer Chronic kidney disease Surgical History Surgery Date(Month/Year) Colonoscopy
--- OUTSIDE RECORDS SUMMARY | 2025-04-14 10:54 | XMS_ITS | Clinical Summary ---
Author Organization Healthcare Address [address] [place] [address] Care Team Providers Care Manual Control Auger Press Operator Name Role Phone Josh Mcbride MD Primary Care Provider + [phone] Allergies No known active allergies Medications levothyroxine (Synthroid, Levoxyl) 75 MCG tablet 1 (one) time each day at the same time. Active metFORMIN XR (Glucophage-XR) 500 MG 24 hr tablet every 12 hours. Active dapagliflozin (Farxiga) 10 MG tablet 1 (one) time each day at the same time. Active glipiZIDE (Glucotrol) 10 MG tablet 1 (one) time each day at the same time. Active spironolactone (Aldactone) 25 MG tablet 1 (one) time each day at the same time. Active semaglutide (Rybelsus) 14 MG tablet 1 (one) time each day at the same time. 5 Active losartan (Cozaar) 100 MG tablet 1 (one) time each day at the same time. 5 Active aspirin 81 MG EC tablet Take 1 tablet by mouth daily. Active UNABLE TO FIND Take by mouth. Potassium 1000mg Active Active Problems Problem Noted Date Diagnosed Date Stage 3b chronic kidney disease 02/19/2025 Essential hypertension, benign 02/19/2025 Type 2 diabetes mellitus wit h stage 3b chronic kidney disease, without long-term current use of insulin 02/19/2025 Other specified hypothyroidism 02/19/2025 Encounters Date Type Department Care Team Description 02/19/2025 1:40 PM EDT Office Visit [facility] Nephrology, Bone & Mineral Metabolism [address] [facility], [address] [place] [address] Suhas Aguero MD Stage 3b chronic kidney disease (CMS/HCC) (Primary Dx); Essential hypertension, benign; Type 2 diabetes mellitus with stage 3b chronic kidney disease, without long-term current use of insulin (CMS/HCC); Other specified hypothyroidism 02/19/2025 Travel from Last 3 Months Social History Tobacco Use Types Packs/Day Years [...] on file Sexual Orientation Not on file Last Filed Vital Signs Vital Sign Reading [...] Mass Index 37.93 02/19/2025 1:29 PM EDT Plan of Treatment Upcoming Encounters Date Type Department Care Team (Late st Contact Info) Description 04/27/2025 1:00 PM EDT Appointment [facility] Ultrasound [address] [place] [address] 04/30/2025 2:40 PM EDT Office Visit [facility] Nephrology, Bone & Mineral Metabolism [address] [facility], [address] [place] [address] Health Maintenance Due Date Last Done Comments [facility]-Diabetes: Hemoglobin A1C 1970 [facility]-HIV Screening 1970 [facility]-Hepatitis C Screening 1970 [facility]-/Child/Adol SDOH Screenings 1970 Diabetes: Dental Exam 1980 [facility]- SDOH Screenings 1988 [facility]-Adult SDOH Screenings 1988 [facility]-DTaP,Tdap,and Td Vaccine s (1 - Tdap) 1989 [facility]-Hepatitis B Vaccines (1 of 3 - 19+ 3-dose series) 1989 [facility]-Pneumococcal Vaccine: 50 + Years (1 of 2 - PCV) 1989 [facility]-Pap Smear 1991 [facility]-Cervical Cancer Screening 2000 [facility]-HPV/Cotest 2000 CT Colonography 2015 Colonoscopy 2015 FIT-DNA 2015 FIT 2015 FOBT 2015 Sigmoidoscopy 2015 [facility]-Colorectal Cancer Screening 2015 [facility]-Breast Cancer Screening 2020 [facility]-Zoster Vaccines (1 of 2) 2020 [id number] Vaccine (3 - Pfizer risk series) 03/29/2021 03/01/2021, 02/08/2021 [facility]-Influenza Vaccine (#1) 2025 [facility]-Depression Screening 02/19/2026 02/19/2025 [facility]-Hepatitis A Vaccines Aged Out 07/26/2018 No longer eligible based on patient's age to complete this topic [facility]-Obesity Intervention Completed 02/19/2025 HPV Vaccines Aged Out No longer eligi ble based on patient's age to complete this topic [facility]-HIB Vaccines Aged Out No longer e ligible based on patient's age to complete this topic [facility]-IPV Vaccines Aged Out No longer e ligible based on patient's age to complete this topic [facility]-Rotavirus Vaccines Aged Out No lo nger eligible based on patient's age to complete this topic Insurance JAKE Care Teams Manual Control Auger Press Operator Relationship Specialty Start Date End Date Josh Mcbride MD [address] [place] [address] PCP - General 12/20/20
--- OUTSIDE RECORDS SUMMARY | 2025-04-14 10:54 | XMS_ITS | Encounter Summary ---
Author Organization Healthcare Address [address] [place] [address] Care Team Providers Care Shear Helper Name Role Phone Josh Mcbride MD Primary Care Provider + [phone] Encounter Details Date Type Department Care Team (Latest Contact Info) Description 02/19/2025 Travel Social History Tobacco Use Types Packs/Day Years Used Date Smoking Tobacco: Never Passive Smoke Exposure: Never Smokeless Tobacco: Never Alcohol Use Standard Drinks/Week Comments Never 0 (1 standard drink = 0.6 oz pur e alcohol) PHQ-2 Answer Date Recorded Patient Health Questionnaire-2 Score 0 02/19/2025 Comments Unknown Sex and Gender Information Value Date Recorded Sex Assigned at Not on file Legal Sex Female 6:58 PM EDT Gender Identity Not on file Sexual Orientation Not on file documented as of this encounter Functional Status * Over the [...] Loni Young documented as of this encounter Plan of Treatment Upcoming Encounters Date Type Department Care Team (Late st Contact Info) Description 04/27/2025 1:00 PM EDT Appointment [facility] Ultrasound [address] [place] [address] 04/30/2025 2:40 PM EDT Office Visit [facility] Nephrology, Bone & Mineral Metabolism [address] [facility] [address] [facility], [address] [place] [address] documented as of this encounter Visit Diagnoses Not on filedocumented in this encounter Additional Health Concerns Assessment Noted Time A fall risk assessment has been complete d for the patient 02/19/2025 1:28 PM EDT A Body Mass Index follow-up plan has been documented for the patient 02/28/2025 1:21 PM EDT documented as of this encounter Care Teams Shear Helper Relationship Specialty Start Date End Date Josh Mcbride MD [address] [place] [address] PCP - General 12/20/20 documented as of this encounter
[2025-04-14 11:10] LABS: Microscopic, Urine URINE MICROSCOPIC (MICROSCOPIC)
[2025-04-14 11:28] LABS: Bilirubin,Urine Negative (Negative); Color,Urine YELLOW (Yellow); Glucose,Urine (UA) 3+ (Negative); Ketones,Urine Negative (Negative); Leukocyte Esterase,Urine Negative (Negative); PH,Urine 5.5 (5.0-8.5); Protein,Urine Negative (Negative); Specific Gravity, Urine 1.025 (1.005-1.030); Urobilinogen,Urine 0.2 EU/dl (0.2)
[2025-04-14 11:34] LABS: Bacteria,Urine Trace /lpf; WBC,Urine Occasional #/hpf (0-3)
[2025-04-14 11:46] LABS: Hematocrit 39.5 % (37.0-47.0); Hemoglobin 12.8 g/dL (12.2-16.2); Immature Granulocytes % 0.1 %; Mean Corpuscular HGB Conc 32.4 g/dL (31.8-35.4); Mean Corpuscular Hemoglobin 29.2 pg (27.0-31.2); Mean Corpuscular Volume 90.2 fl (81-99); Nucleated Red Blood Cells % 0 %; Platelet Count 280 K/mm3 (142-424); Red Blood Count 4.38 M/mm3 (4.20-5.40); Red Cell Distribution Width-SD 39.7 fL; White Blood Count 10.7 K/mm3 (4.8-10.8)
[2025-04-14 12:26] LABS: Albumin Level 4.5 g/dl (3.5-5.0); Anion Gap 17.0 mEq/L (5-15); Blood Urea Nitrogen 30 mg/dl (7-17); Calcium 9.4 mg/dl (8.4-10.2); Carbon Dioxide 23 mmol/L (22.0-30.0); Chloride 103 mmol/L (98-107); Creatinine,Serum 1.90 mg/dl (0.52-1.04); Estimated Glomerular Filt Rate 28 ml/min (>60); GFR (African American) 33 ML/MIN (>60); Glucose 119 mg/dl (74-100); Phosphorous 4.0 mg/dl (2.5-4.5); Potassium 5.0 mmoL/L (3.5-5.1); Sodium 138 mmol/L (136-145)
[2025-04-15 07:04] LABS: Albumin, U 6.6 ug/mL (Not Estab.)
[2025-04-16 13:12] LABS: Albumin 3.7 g/dL (2.9-4.4); Alpha-1-Globulin 0.2 g/dL (0.0-0.4); Alpha-2-Globulin 1.0 g/dL (0.4-1.0); Gamma Globulin 1.5 g/dL (0.4-1.8)
== END 2025-04-14 23:59 | disposition home or self-care (01) ==
LOC: LAB 10:51
PROVIDERS: PCP Family Medicine; Visit Provider Internal Medicine Nephrology
DX: I12.9 Hypertensive chronic kidney disease with stage 1 through stage 4 chronic kidney disease, or unspecified chronic kidney disease (principal); N18.32 Chronic kidney disease, stage 3b
CPT/HCPCS: 80069; 81001; 82043; 82570; 83521; 83970; 84155; 84156; 84165; 85025